=== PATIENT | female | born 1990 | race African-American/Black ===

== ENCOUNTER 2022-04-29 05:57 | Inpatient (IN) ==
[2022-04-23 13:00] LABS: Basophils % 0.2 % (0.0-0.8); Eosinophils # 0.1 10*3/uL (0.0-0.87); Eosinophils % 0.7 % (0.00-10.9); Hematocrit 28.5 VOL% (35.7-47.0); Hemoglobin 8.8 GM/DL (12.0-16.0); Immature Granulocytes % 0.5 %; Immature Granulocytes Absolute 0.05 #; Lymphocytes # 1.5 10*3/uL (1.4-4.0); Lymphocytes % 14.6 % (21.3-54.2); Mean Corpuscular HGB Conc 30.9 GM/DL (32-36); Mean Corpuscular Volume 84.8 FL (87-102); Mean Platelet Volume 8.9 FL (9.6-12.0); Monocytes # 0.7 10*3/uL (0.11-0.8); Monocytes % 7.1 % (1.7-12.7); Neutrophils % 76.9 % (38.7-73.9); Platelet Count 484 T/CUMM (130-400); Red Blood Count 3.36 MC/CUMM (3.8-5.5); Red Cell Distribution Width 15.5 % (9.3-17.3)
[2022-04-23 13:17] LABS: Calcium 8.1 MG/DL (8.5-10.1); Osmolality,Calculated 268.8 MOS/KG (273-304); Potassium 4.1 MMOL/L (3.5-5.1)
[2022-04-23 13:26] LABS: Thyroid Stimulating Hormone 1.1 uIU/ml (0.358-3.74)
[2022-04-29] MEDS ORDERED: propofoL 200 MG/20 ML VIAL IV ONE ×2 (06:22→08:59)
[2022-04-29] MEDS ORDERED: ROCURONIUM 50 MG/5 ML VIAL IV ONE ×2 (06:22→10:25)
[2022-04-29] MEDS ORDERED: LIDOCAINE 2% 5 ML VIAL ONE (06:22)
[2022-04-29] MEDS ORDERED: MIDAZOLAM 2 MG/2 ML VIAL ONE (06:23)
[2022-04-29] MEDS ORDERED: fentaNYL 100 MCG/2 ML VIAL ONE ×2 (06:23→10:00)
[2022-04-29] MEDS ORDERED: SUCCINYLCHOLINE 200 MG/10 ML VIAL ONE (06:27)
[2022-04-29] MEDS ORDERED: ERTAPENEM 1,000 MG in SODIUM CHLORIDE 0.9% 100 ML IV ONE (06:30)
[2022-04-29] MEDS ORDERED: LACTATED RINGERS 1,000 ML IV SCH (06:30)
[2022-04-29] MEDS ORDERED: EPINEPHrine 1 MG/ML VIAL ONE ×4 (06:54→11:13)
[2022-04-29] MEDS ORDERED: BUPIVACAINE MPF 0.25% 10 ML VIAL ONE (06:56)
[2022-04-29] MEDS ORDERED: LIDOCAINE 1%/EPI INJ 20 ML VIAL ONE (06:56)
[2022-04-29] MEDS ORDERED: LIDOCAINE 1% 5 ML VIAL ONE (06:56)
[2022-04-29] MEDS ORDERED: ESMOLOL 100 MG/10 ML VIAL IV ONE (06:57)
[2022-04-29] MEDS ORDERED: THROMBIN TOPICAL (RECOMBINANT) 5,000 UNIT VIAL TOP ONE (06:58)
[2022-04-29] MEDS ORDERED: FAMOTIDINE 20 MG/2 ML VIAL IV ONE (06:58)
[2022-04-29] MEDS ORDERED: PHENYLEPHRINE DRIP 20 MG/250 ML PREMIX IV ONE (06:58)
[2022-04-29] MEDS ORDERED: SEVOFLURANE 1 UNIT/15 MINUTE INH ONE ×13 (08:09→11:22)
[2022-04-29] MEDS ORDERED: DEXAMETHASONE 4 MG/1 ML VIAL ONE (08:09)
[2022-04-29] MEDS ORDERED: ONDANSETRON 4 MG/2 ML VIAL ONE ×3 (08:09→12:55)
[2022-04-29 08:18] LABS: Bacteria,Urine Occasional /HPF (Few); Bilirubin,Urine Negative (Negative); Blood, Urine Trace mg/dL (Negative); Glucose,Urine (UA) Negative (Negative); Ketones,Urine Negative (Negative); Nitrite,Urine Negative (Negative); Protein,Urine Negative (Negative); RBC,Urine <1 /HPF (0-4); Squamous Epithelial Cell,Urine Occasional /HPF (0-10); Urine Appearance Clear (Clear); Urine Color Yellow (Yellow); Urine pH 6.5 (4.5-8.0)
[2022-04-29 08:19] LABS: Urine Urobilinogen 0.2 eU/dL (<2.0)
[2022-04-29] MEDS ORDERED: TISSUE ADHESIVE 1 EACH APPLICATOR TOP ONE (09:01)
[2022-04-29] MEDS ORDERED: PHENYLEPHRINE 1 MG/10 ML SYRINGE IV ONE (09:11)
[2022-04-29] MEDS ORDERED: SPRAY APPLICATOR KIT 1 EACH MISC ONE (09:59)
[2022-04-29] MEDS ORDERED: SODIUM CHLORIDE 0.9% 1,000 ML IV PRN (10:04)
[2022-04-29] MEDS ORDERED: PHENYLEPHRINE 10 MG/1 ML VIAL IV ONE (11:07)
[2022-04-29] MEDS ORDERED: SUGAMMADEX 200 MG/2 ML VIAL IV ONE (11:56)
[2022-04-29] MEDS ORDERED: NALOXONE 0.4 MG/ML VIAL IV PRN (12:38)
[2022-04-29] MEDS ORDERED: ONDANSETRON 4 MG/2 ML VIAL IV PRN ×2 (12:38→13:00)
[2022-04-29] MEDS ORDERED: MEPERIDINE 25 MG/1 ML VIAL ONE ×2 (12:55→13:04)
[2022-04-29] MEDS ORDERED: diphenhydrAMINE 50 MG/1 ML VIAL IV PRN (13:00)
[2022-04-29] MEDS ORDERED: HYDROmorphone 1 MG/1 ML SYRINGE IV PRN (13:00)
[2022-04-29] MEDS: MEPERIDINE 25 MG/1 ML VIAL IV PRN ×2 (13:00→13:10)
[2022-04-29] MEDS ORDERED: PROMETHAZINE INJ 25 MG in SODIUM CHLORIDE 0.9% 50 ML IV PRN (13:00)
[2022-04-29] MEDS ORDERED: PROMETHAZINE 25 MG/1 ML VIAL ONE (13:04)
[2022-04-29] MEDS ORDERED: HYDROmorphone PCA 30 MG/30 ML SYRINGE IV ONE (13:25)
[2022-04-29] MEDS: HYDROmorphone PCA 30 MG/30 ML SYRINGE IV SCH (13:39)
[2022-04-29 13:41] LABS: Hematocrit 30.9 VOL% (35.7-47.0); Hemoglobin 9.5 GM/DL (12.0-16.0)
[2022-04-29] MEDS: LACTATED RINGERS 1,000 ML IV SCH ×2 (13:44→21:50)
[2022-04-29] MEDS: METOPROLOL TARTRATE 25 MG TABLET PO SCH (21:50)
[2022-04-30] MEDS: LACTATED RINGERS 1,000 ML IV SCH ×3 (04:54→20:17)
[2022-04-30 05:28] LABS: Basophils # 0.1 10*3/uL (0.0-0.2); Basophils % 0.2 % (0.0-0.8); Hematocrit 27.8 VOL% (35.7-47.0); Hemoglobin 8.4 GM/DL (12.0-16.0); Immature Granulocytes % 5.9 %; Lymphocytes # 1.7 10*3/uL (1.4-4.0); Lymphocytes % 7.2 % (21.3-54.2); Mean Corpuscular HGB Conc 30.2 GM/DL (32-36); Mean Corpuscular Volume 89.1 FL (87-102); Mean Platelet Volume 8.6 FL (9.6-12.0); Monocytes % 4.4 % (1.7-12.7); Neutrophils % 82.3 % (38.7-73.9); Platelet Count 400 T/CUMM (130-400); Red Blood Count 3.12 MC/CUMM (3.8-5.5); Red Cell Distribution Width 15.2 % (9.3-17.3); White Blood Count 23.6 T/CUMM (4-12)
[2022-04-30 05:52] LABS: Hypochromia Slight; Lymphocytes 3 % (20-55); Platelet Estimate Adequate; Total Cells Counted 100
[2022-04-30 05:53] LABS: Microcytosis Slight
[2022-04-30 05:56] LABS: Calcium 7.9 MG/DL (8.5-10.1); Osmolality,Calculated 270.7 MOS/KG (273-304)
[2022-04-30] MEDS: ENOXAPARIN 30 MG/0.3 ML SYRINGE SUBCUT SCH (08:51)
[2022-04-30] MEDS: METOPROLOL TARTRATE 25 MG TABLET PO SCH ×3 (08:51→20:16)
[2022-04-30] MEDS: PANTOPRAZOLE 40 MG VIAL IV SCH (08:52)
[2022-05-01] MEDS: LACTATED RINGERS 1,000 ML IV SCH ×3 (04:19→20:53)
[2022-05-01] MEDS: PANTOPRAZOLE 40 MG VIAL IV SCH (09:37)
[2022-05-01] MEDS: ENOXAPARIN 30 MG/0.3 ML SYRINGE SUBCUT SCH (09:38)
[2022-05-01] MEDS: METOPROLOL TARTRATE 25 MG TABLET PO SCH ×2 (09:38→20:40)
[2022-05-01] MEDS: ACETAMINOPHEN 325 MG TABLET PO PRN (20:40)
[2022-05-01] MEDS: HYDROmorphone PCA 30 MG/30 ML SYRINGE IV SCH (20:52)
[2022-05-02] MEDS: LACTATED RINGERS 1,000 ML IV SCH ×3 (04:04→20:37)
[2022-05-02] MEDS: METOPROLOL TARTRATE 25 MG TABLET PO SCH ×2 (09:49→20:31)
[2022-05-02] MEDS: PANTOPRAZOLE 40 MG VIAL IV SCH (09:50)
[2022-05-02] MEDS: ENOXAPARIN 30 MG/0.3 ML SYRINGE SUBCUT SCH (09:50)
[2022-05-02] MEDS: diphenhydrAMINE CAP 25 MG CAPSULE PO PRN (20:31)
[2022-05-02] MEDS: HYDROmorphone PCA 30 MG/30 ML SYRINGE IV SCH (20:36)
[2022-05-03] MEDS: LACTATED RINGERS 1,000 ML IV SCH ×3 (04:39→21:35)
[2022-05-03] MEDS: METOPROLOL TARTRATE 25 MG TABLET PO SCH ×2 (08:45→21:20)
[2022-05-03] MEDS: ENOXAPARIN 30 MG/0.3 ML SYRINGE SUBCUT SCH (08:46)
[2022-05-03] MEDS: PANTOPRAZOLE 40 MG VIAL IV SCH (08:46)
[2022-05-03] MEDS: HYDROmorphone PCA 30 MG/30 ML SYRINGE IV SCH (19:08)
[2022-05-04] MEDS: LACTATED RINGERS 1,000 ML IV SCH ×4 (06:41→22:30)
[2022-05-04] MEDS ORDERED: fentaNYL 100 MCG/2 ML VIAL ONE (08:44)
[2022-05-04] MEDS ORDERED: PHENYLEPHRINE 1 MG/10 ML SYRINGE IV ONE (08:44)
[2022-05-04] MEDS ORDERED: MIDAZOLAM 2 MG/2 ML VIAL ONE ×2 (08:44→09:44)
[2022-05-04] MEDS ORDERED: propofoL 200 MG/20 ML VIAL IV ONE ×3 (08:44→10:00)
[2022-05-04] MEDS ORDERED: SEVOFLURANE 1 UNIT/15 MINUTE INH ONE (08:44)
[2022-05-04] MEDS ORDERED: LIDOCAINE 2% 5 ML VIAL ONE (08:44)
[2022-05-04] MEDS ORDERED: ONDANSETRON 4 MG/2 ML VIAL ONE (08:45)
[2022-05-04] MEDS ORDERED: BACITRACIN OINT 0.9 GM PACK TOP ONE ×2 (08:48→09:42)
[2022-05-04] MEDS ORDERED: KETAMINE 500 MG/10 ML VIAL ONE (09:18)
[2022-05-04] MEDS ORDERED: GLYCOPYRROLATE 0.4 MG/2 ML VIAL ONE (09:18)
[2022-05-04] MEDS ORDERED: HYDROmorphone 1 MG/1 ML SYRINGE IV PRN (10:34)
[2022-05-04] MEDS ORDERED: diphenhydrAMINE 50 MG/1 ML VIAL IV PRN (10:34)
[2022-05-04] MEDS ORDERED: MEPERIDINE 25 MG/1 ML VIAL IV PRN (10:34)
[2022-05-04] MEDS ORDERED: PROMETHAZINE INJ 25 MG in SODIUM CHLORIDE 0.9% 50 ML IV PRN (10:34)
[2022-05-04] MEDS ORDERED: ONDANSETRON 4 MG/2 ML VIAL IV PRN (10:34)
[2022-05-04] MEDS ORDERED: MEPERIDINE 25 MG/1 ML VIAL ONE (10:39)
[2022-05-04] MEDS ORDERED: PROMETHAZINE 25 MG/1 ML VIAL ONE (10:39)
[2022-05-04] MEDS: ENOXAPARIN 30 MG/0.3 ML SYRINGE SUBCUT SCH (11:31)
[2022-05-04] MEDS: METOPROLOL TARTRATE 25 MG TABLET PO SCH ×2 (11:54→22:30)
[2022-05-04] MEDS: PANTOPRAZOLE 40 MG VIAL IV SCH (11:54)
[2022-05-04] MEDS: HYDROmorphone PCA 30 MG/30 ML SYRINGE IV SCH (18:38)
[2022-05-04] MEDS: PIPERACILLIN/TAZOBACTAM 3,375 MG in SODIUM CHLORIDE 0.9% 100 ML IV SCH (18:44)
[2022-05-05] MEDS: PIPERACILLIN/TAZOBACTAM 3,375 MG in SODIUM CHLORIDE 0.9% 100 ML IV SCH ×3 (02:24→17:09)
[2022-05-05] MEDS: PANTOPRAZOLE 40 MG VIAL IV SCH (09:08)
[2022-05-05] MEDS: METOPROLOL TARTRATE 25 MG TABLET PO SCH ×2 (09:08→20:57)
[2022-05-05] MEDS: ENOXAPARIN 30 MG/0.3 ML SYRINGE SUBCUT SCH (09:08)
[2022-05-05] MEDS: LACTATED RINGERS 1,000 ML IV SCH (14:35)
[2022-05-05] MEDS: HYDROmorphone PCA 30 MG/30 ML SYRINGE IV SCH (14:35)
[2022-05-05] MEDS: ACETAMINOPHEN 325 MG TABLET PO PRN (17:09)
[2022-05-05] MEDS ORDERED: BACITRACIN OINT 28.35 GM TUBE TOP ONE (17:30)
[2022-05-05] MEDS: VANCOMYCIN INJ 1,000 MG in SODIUM CHLORIDE 0.9% 250 ML IV SCH (21:14)
[2022-05-06] MEDS: PIPERACILLIN/TAZOBACTAM 3,375 MG in SODIUM CHLORIDE 0.9% 100 ML IV SCH ×3 (01:30→17:12)
[2022-05-06] MEDS: LACTATED RINGERS 1,000 ML IV SCH ×3 (04:30→16:02)
[2022-05-06] MEDS: VANCOMYCIN INJ 1,000 MG in SODIUM CHLORIDE 0.9% 250 ML IV SCH ×2 (09:34→21:21)
[2022-05-06] MEDS: ENOXAPARIN 30 MG/0.3 ML SYRINGE SUBCUT SCH (09:34)
[2022-05-06] MEDS: METOPROLOL TARTRATE 25 MG TABLET PO SCH ×2 (09:34→21:21)
[2022-05-06] MEDS: PANTOPRAZOLE 40 MG VIAL IV SCH (09:35)
[2022-05-06] MEDS: SERTRALINE 25 MG TABLET PO SCH (16:02)
[2022-05-06] MEDS: HYDROmorphone PCA 30 MG/30 ML SYRINGE IV SCH (18:22)
[2022-05-07] MEDS: LACTATED RINGERS 1,000 ML IV SCH (01:11)
[2022-05-07] MEDS: PIPERACILLIN/TAZOBACTAM 3,375 MG in SODIUM CHLORIDE 0.9% 100 ML IV SCH ×3 (02:49→17:44)
[2022-05-07 05:49] LABS: Calcium 7.8 MG/DL (8.5-10.1); Osmolality,Calculated 270.7 MOS/KG (273-304); Potassium 3.6 MMOL/L (3.5-5.1)
[2022-05-07] MEDS: SERTRALINE 25 MG TABLET PO SCH (09:20)
[2022-05-07] MEDS: METOPROLOL TARTRATE 25 MG TABLET PO SCH ×2 (09:20→21:48)
[2022-05-07] MEDS: PANTOPRAZOLE 40 MG VIAL IV SCH (09:20)
[2022-05-07] MEDS: ENOXAPARIN 40 MG/0.4 ML SYRINGE SUBCUT SCH (09:20)
[2022-05-07] MEDS: POLYETHYLENE GLYCOL POWDER 17 GM PACK PO SCH (09:24)
[2022-05-07] MEDS: VANCOMYCIN INJ 1,000 MG in SODIUM CHLORIDE 0.9% 250 ML IV SCH ×2 (14:26→21:47)
[2022-05-07] MEDS: BACITRACIN OINT 28.35 GM TUBE TOP SCH (18:00)
[2022-05-08] MEDS: PIPERACILLIN/TAZOBACTAM 3,375 MG in SODIUM CHLORIDE 0.9% 100 ML IV SCH ×3 (02:58→18:06)
[2022-05-08] MEDS: PANTOPRAZOLE 40 MG VIAL IV SCH (08:22)
[2022-05-08] MEDS: ENOXAPARIN 40 MG/0.4 ML SYRINGE SUBCUT SCH (08:22)
[2022-05-08] MEDS: POLYETHYLENE GLYCOL POWDER 17 GM PACK PO SCH (08:22)
[2022-05-08] MEDS: METOPROLOL TARTRATE 25 MG TABLET PO SCH ×2 (08:22→20:46)
[2022-05-08] MEDS: SERTRALINE 25 MG TABLET PO SCH (08:22)
[2022-05-08 08:55] LABS: Basophils % 0.2 % (0.0-0.8); Eosinophils % 0.3 % (0.00-10.9); Hematocrit 26.4 VOL% (35.7-47.0); Hemoglobin 8.3 GM/DL (12.0-16.0); Immature Granulocytes % 1.2 %; Immature Granulocytes Absolute 0.14 #; Lymphocytes # 0.8 10*3/uL (1.4-4.0); Lymphocytes % 6.7 % (21.3-54.2); Mean Corpuscular HGB Conc 31.4 GM/DL (32-36); Mean Corpuscular Volume 85.4 FL (87-102); Mean Platelet Volume 8.5 FL (9.6-12.0); Monocytes # 0.7 10*3/uL (0.11-0.8); Neutrophils % 85.6 % (38.7-73.9); Platelet Count 430 T/CUMM (130-400); Red Blood Count 3.09 MC/CUMM (3.8-5.5); Red Cell Distribution Width 14.8 % (9.3-17.3)
[2022-05-08 09:15] LABS: Eosinophils 1 % (0-10); Hypochromia Slight; Lymphocytes 8 % (20-55); Microcytosis Slight; Platelet Estimate Adequate; Total Cells Counted 100
[2022-05-08] MEDS: VANCOMYCIN INJ 1,000 MG in SODIUM CHLORIDE 0.9% 250 ML IV SCH ×2 (09:50→22:10)
[2022-05-08] MEDS: BACITRACIN OINT 28.35 GM TUBE TOP SCH (09:51)
[2022-05-09] MEDS: PIPERACILLIN/TAZOBACTAM 3,375 MG in SODIUM CHLORIDE 0.9% 100 ML IV SCH ×3 (02:58→17:47)
[2022-05-09] MEDS: ENOXAPARIN 40 MG/0.4 ML SYRINGE SUBCUT SCH (09:33)
[2022-05-09] MEDS: PANTOPRAZOLE 40 MG VIAL IV SCH (09:33)
[2022-05-09] MEDS: SERTRALINE 25 MG TABLET PO SCH (09:33)
[2022-05-09] MEDS: BACITRACIN OINT 28.35 GM TUBE TOP SCH (09:34)
[2022-05-09] MEDS: POLYETHYLENE GLYCOL POWDER 17 GM PACK PO SCH (09:34)
[2022-05-09] MEDS: VANCOMYCIN INJ 1,000 MG in SODIUM CHLORIDE 0.9% 250 ML IV SCH ×2 (09:34→22:00)
[2022-05-09] MEDS: METOPROLOL TARTRATE 25 MG TABLET PO SCH ×2 (10:04→22:01)
[2022-05-10] MEDS: PIPERACILLIN/TAZOBACTAM 3,375 MG in SODIUM CHLORIDE 0.9% 100 ML IV SCH ×3 (03:17→17:20)
[2022-05-10 08:55] LABS: Calcium 7.3 MG/DL (8.5-10.1); Osmolality,Calculated 285.6 MOS/KG (273-304)
[2022-05-10] MEDS: VANCOMYCIN INJ 1,000 MG in SODIUM CHLORIDE 0.9% 250 ML IV SCH ×2 (09:35→20:46)
[2022-05-10] MEDS: ENOXAPARIN 40 MG/0.4 ML SYRINGE SUBCUT SCH (09:35)
[2022-05-10] MEDS: PANTOPRAZOLE 40 MG VIAL IV SCH (09:35)
[2022-05-10] MEDS: METOPROLOL TARTRATE 25 MG TABLET PO SCH ×2 (09:36→20:46)
[2022-05-10] MEDS: BACITRACIN OINT 28.35 GM TUBE TOP SCH (09:36)
[2022-05-10] MEDS: POLYETHYLENE GLYCOL POWDER 17 GM PACK PO SCH (09:37)
[2022-05-10] MEDS: SERTRALINE 25 MG TABLET PO SCH (09:37)
[2022-05-11] MEDS: PIPERACILLIN/TAZOBACTAM 3,375 MG in SODIUM CHLORIDE 0.9% 100 ML IV SCH ×3 (02:03→17:56)
[2022-05-11] MEDS: VANCOMYCIN INJ 1,000 MG in SODIUM CHLORIDE 0.9% 250 ML IV SCH (10:05)
[2022-05-11] MEDS: PANTOPRAZOLE 40 MG VIAL IV SCH (10:05)
[2022-05-11] MEDS: ENOXAPARIN 40 MG/0.4 ML SYRINGE SUBCUT SCH (10:06)
[2022-05-11] MEDS: METOPROLOL TARTRATE 25 MG TABLET PO SCH ×2 (10:15→21:29)
[2022-05-11] MEDS: POLYETHYLENE GLYCOL POWDER 17 GM PACK PO SCH (10:15)
[2022-05-11] MEDS: SERTRALINE 25 MG TABLET PO SCH (10:16)
[2022-05-11] MEDS: BACITRACIN OINT 28.35 GM TUBE TOP SCH (11:29)
[2022-05-12] MEDS: PIPERACILLIN/TAZOBACTAM 3,375 MG in SODIUM CHLORIDE 0.9% 100 ML IV SCH ×3 (01:48→17:24)
[2022-05-12] MEDS: METOPROLOL TARTRATE 25 MG TABLET PO SCH ×2 (09:28→21:30)
[2022-05-12] MEDS: ENOXAPARIN 40 MG/0.4 ML SYRINGE SUBCUT SCH (09:28)
[2022-05-12] MEDS: POLYETHYLENE GLYCOL POWDER 17 GM PACK PO SCH (09:28)
[2022-05-12] MEDS: SERTRALINE 25 MG TABLET PO SCH (09:29)
[2022-05-12] MEDS: PANTOPRAZOLE 40 MG VIAL IV SCH (09:29)
[2022-05-12] MEDS: BACITRACIN OINT 28.35 GM TUBE TOP SCH (09:29)
[2022-05-13] MEDS: PIPERACILLIN/TAZOBACTAM 3,375 MG in SODIUM CHLORIDE 0.9% 100 ML IV SCH ×3 (01:42→17:55)
[2022-05-13 05:19] LABS: Calcium 7.4 MG/DL (8.5-10.1); Osmolality,Calculated 280.1 MOS/KG (273-304)
[2022-05-13] MEDS: POLYETHYLENE GLYCOL POWDER 17 GM PACK PO SCH (09:16)
[2022-05-13] MEDS: ENOXAPARIN 40 MG/0.4 ML SYRINGE SUBCUT SCH (09:16)
[2022-05-13] MEDS: BACITRACIN OINT 28.35 GM TUBE TOP SCH (09:18)
[2022-05-13] MEDS: SERTRALINE 25 MG TABLET PO SCH (09:18)
[2022-05-13] MEDS: METOPROLOL TARTRATE 25 MG TABLET PO SCH ×3 (09:18→21:03)
[2022-05-13] MEDS: PANTOPRAZOLE 40 MG VIAL IV SCH (09:20)
[2022-05-14] MEDS: PIPERACILLIN/TAZOBACTAM 3,375 MG in SODIUM CHLORIDE 0.9% 100 ML IV SCH ×3 (01:25→17:02)
[2022-05-14 06:28] LABS: Basophils % 0.1 % (0.0-0.8); Eosinophils % 0.5 % (0.00-10.9); Hemoglobin 6.8 GM/DL (12.0-16.0); Immature Granulocytes % 0.7 %; Immature Granulocytes Absolute 0.06 #; Lymphocytes # 1.1 10*3/uL (1.4-4.0); Lymphocytes % 13.1 % (21.3-54.2); Mean Corpuscular HGB Conc 30.9 GM/DL (32-36); Mean Corpuscular Volume 85.9 FL (87-102); Monocytes # 0.8 10*3/uL (0.11-0.8); Monocytes % 9.1 % (1.7-12.7); Neutrophils % 76.5 % (38.7-73.9); Platelet Count 322 T/CUMM (130-400); Red Blood Count 2.56 MC/CUMM (3.8-5.5); White Blood Count 8.3 T/CUMM (4-12)
[2022-05-14 06:45] LABS: Calcium 7.7 MG/DL (8.5-10.1); Osmolality,Calculated 281.1 MOS/KG (273-304); Potassium 3.2 MMOL/L (3.5-5.1)
[2022-05-14] MEDS: POTASSIUM CHLORIDE 20 MEQ TABLET PO PRN ×2 (08:51→10:54)
[2022-05-14] MEDS: PANTOPRAZOLE 40 MG VIAL IV SCH (08:52)
[2022-05-14] MEDS: ENOXAPARIN 40 MG/0.4 ML SYRINGE SUBCUT SCH (10:22)
[2022-05-14] MEDS: METOPROLOL TARTRATE 25 MG TABLET PO SCH ×2 (10:22→21:18)
[2022-05-14] MEDS: SERTRALINE 25 MG TABLET PO SCH (10:23)
[2022-05-14] MEDS: POLYETHYLENE GLYCOL POWDER 17 GM PACK PO SCH (10:23)
[2022-05-14] MEDS: BACITRACIN OINT 28.35 GM TUBE TOP SCH (10:56)
[2022-05-14] MEDS ORDERED: SODIUM CHLORIDE 0.9% 1,000 ML IV PRN (11:09)
[2022-05-14] MEDS: methylPREDNISolone SOD SUC 40 MG/1 ML VIAL IV SCH (17:02)
[2022-05-15] MEDS: diphenhydrAMINE CAP 25 MG CAPSULE PO PRN ×2 (00:25→20:32)
[2022-05-15] MEDS: PIPERACILLIN/TAZOBACTAM 3,375 MG in SODIUM CHLORIDE 0.9% 100 ML IV SCH ×3 (01:45→18:16)
[2022-05-15 06:42] LABS: Alanine Aminotransferase 17 U/L (13-56); Alkaline Phosphatase 138 U/L (45-117); Aspartate Amino Transferase 18 U/L (0-37); Bilirubin,Total < 0.39 MG/DL (0.20-1.00); Blood Urea Nitrogen 10 MG/DL (7-18); Carbon Dioxide 30 MMOL/L (21-32); Chloride 110 MMOL/L (98-107); Glucose 106 MG/DL (74-106); Osmolality,Calculated 279.3 MOS/KG (273-304); Potassium 4.1 MMOL/L (3.5-5.1); Sodium 141 MMOL/L (136-145)
[2022-05-15] MEDS: ENOXAPARIN 40 MG/0.4 ML SYRINGE SUBCUT SCH (08:48)
[2022-05-15] MEDS: METOPROLOL TARTRATE 25 MG TABLET PO SCH ×2 (08:48→20:43)
[2022-05-15] MEDS: methylPREDNISolone SOD SUC 40 MG/1 ML VIAL IV SCH (08:49)
[2022-05-15] MEDS: PANTOPRAZOLE 40 MG VIAL IV SCH (08:50)
[2022-05-15] MEDS: POLYETHYLENE GLYCOL POWDER 17 GM PACK PO SCH (08:50)
[2022-05-15] MEDS: BACITRACIN OINT 28.35 GM TUBE TOP SCH (09:47)
[2022-05-15] MEDS: SERTRALINE 25 MG TABLET PO SCH (11:05)
[2022-05-15] MEDS: SKIN HEALING OINT (AQUAPHOR) 50 GM TUBE TOP SCH (15:03)
[2022-05-16] MEDS: PIPERACILLIN/TAZOBACTAM 3,375 MG in SODIUM CHLORIDE 0.9% 100 ML IV SCH ×3 (01:54→18:19)
[2022-05-16 05:43] LABS: Basophils % 0.1 % (0.0-0.8); Eosinophils % 0.4 % (0.00-10.9); Hematocrit 27.5 VOL% (35.7-47.0); Hemoglobin 8.3 GM/DL (12.0-16.0); Immature Granulocytes % 0.6 %; Immature Granulocytes Absolute 0.04 #; Lymphocytes # 1.6 10*3/uL (1.4-4.0); Lymphocytes % 22.2 % (21.3-54.2); Mean Corpuscular HGB Conc 30.2 GM/DL (32-36); Mean Corpuscular Volume 85.7 FL (87-102); Mean Platelet Volume 9.1 FL (9.6-12.0); Monocytes # 0.7 10*3/uL (0.11-0.8); Monocytes % 9.1 % (1.7-12.7); Neutrophils % 67.6 % (38.7-73.9); Platelet Count 404 T/CUMM (130-400); Red Blood Count 3.21 MC/CUMM (3.8-5.5); Red Cell Distribution Width 17.4 % (9.3-17.3); White Blood Count 7.1 T/CUMM (4-12)
[2022-05-16] MEDS: methylPREDNISolone SOD SUC 40 MG/1 ML VIAL IV SCH (09:13)
[2022-05-16] MEDS: PANTOPRAZOLE 40 MG VIAL IV SCH (09:14)
[2022-05-16] MEDS: SKIN HEALING OINT (AQUAPHOR) 50 GM TUBE TOP SCH (09:15)
[2022-05-16] MEDS: BACITRACIN OINT 28.35 GM TUBE TOP SCH (09:15)
[2022-05-16] MEDS: ENOXAPARIN 40 MG/0.4 ML SYRINGE SUBCUT SCH (09:15)
[2022-05-16] MEDS: METOPROLOL TARTRATE 25 MG TABLET PO SCH ×2 (10:42→20:53)
[2022-05-16] MEDS: POLYETHYLENE GLYCOL POWDER 17 GM PACK PO SCH (10:42)
[2022-05-16] MEDS: SERTRALINE 25 MG TABLET PO SCH (10:43)
[2022-05-17] MEDS: PIPERACILLIN/TAZOBACTAM 3,375 MG in SODIUM CHLORIDE 0.9% 100 ML IV SCH ×3 (01:27→18:23)
[2022-05-17] MEDS: diphenhydrAMINE CAP 25 MG CAPSULE PO PRN ×2 (02:45→23:14)
[2022-05-17] MEDS: POLYETHYLENE GLYCOL POWDER 17 GM PACK PO SCH (09:06)
[2022-05-17] MEDS: methylPREDNISolone SOD SUC 40 MG/1 ML VIAL IV SCH (09:06)
[2022-05-17] MEDS: PANTOPRAZOLE 40 MG VIAL IV SCH (09:07)
[2022-05-17] MEDS: ENOXAPARIN 40 MG/0.4 ML SYRINGE SUBCUT SCH (09:07)
[2022-05-17] MEDS: BACITRACIN OINT 28.35 GM TUBE TOP SCH (09:08)
[2022-05-17] MEDS: SKIN HEALING OINT (AQUAPHOR) 50 GM TUBE TOP SCH (09:08)
[2022-05-17] MEDS: METOPROLOL TARTRATE 25 MG TABLET PO SCH ×2 (09:52→21:07)
[2022-05-17] MEDS: SERTRALINE 25 MG TABLET PO SCH (09:52)
[2022-05-18] MEDS: PIPERACILLIN/TAZOBACTAM 3,375 MG in SODIUM CHLORIDE 0.9% 100 ML IV SCH ×3 (01:53→17:49)
[2022-05-18] MEDS: POLYETHYLENE GLYCOL POWDER 17 GM PACK PO SCH (09:06)
[2022-05-18] MEDS: METOPROLOL TARTRATE 25 MG TABLET PO SCH ×3 (09:08→21:00)
[2022-05-18] MEDS: PANTOPRAZOLE 40 MG VIAL IV SCH (09:08)
[2022-05-18] MEDS: methylPREDNISolone SOD SUC 40 MG/1 ML VIAL IV SCH (09:08)
[2022-05-18] MEDS: BACITRACIN OINT 28.35 GM TUBE TOP SCH (09:09)
[2022-05-18] MEDS: ENOXAPARIN 40 MG/0.4 ML SYRINGE SUBCUT SCH (09:09)
[2022-05-18] MEDS: SERTRALINE 25 MG TABLET PO SCH (09:23)
[2022-05-18] MEDS: SKIN HEALING OINT (AQUAPHOR) 50 GM TUBE TOP SCH (10:17)
[2022-05-18] MEDS ORDERED: methylPREDNISolone SOD SUC 40 MG/1 ML VIAL IM ONE (15:22)
[2022-05-18] MEDS: diphenhydrAMINE CAP 25 MG CAPSULE PO PRN (21:52)
[2022-05-19] MEDS: PIPERACILLIN/TAZOBACTAM 3,375 MG in SODIUM CHLORIDE 0.9% 100 ML IV SCH ×3 (01:10→18:26)
[2022-05-19] MEDS: ENOXAPARIN 40 MG/0.4 ML SYRINGE SUBCUT SCH (08:58)
[2022-05-19] MEDS: methylPREDNISolone SOD SUC 40 MG/1 ML VIAL IV SCH (08:58)
[2022-05-19] MEDS: PANTOPRAZOLE 40 MG VIAL IV SCH (08:59)
[2022-05-19] MEDS: METOPROLOL TARTRATE 25 MG TABLET PO SCH ×2 (08:59→21:00)
[2022-05-19] MEDS: SERTRALINE 25 MG TABLET PO SCH (09:54)
[2022-05-19] MEDS: POLYETHYLENE GLYCOL POWDER 17 GM PACK PO SCH (09:54)
[2022-05-19] MEDS: BACITRACIN OINT 28.35 GM TUBE TOP SCH (14:20)
[2022-05-19] MEDS: SKIN HEALING OINT (AQUAPHOR) 50 GM TUBE TOP SCH (14:20)
[2022-05-20] MEDS: PIPERACILLIN/TAZOBACTAM 3,375 MG in SODIUM CHLORIDE 0.9% 100 ML IV SCH ×3 (02:09→17:50)
[2022-05-20] MEDS: ENOXAPARIN 40 MG/0.4 ML SYRINGE SUBCUT SCH (09:55)
[2022-05-20] MEDS: PANTOPRAZOLE 40 MG TABLET PO SCH (09:55)
[2022-05-20] MEDS: methylPREDNISolone SOD SUC 40 MG/1 ML VIAL IV SCH (09:55)
[2022-05-20] MEDS: POLYETHYLENE GLYCOL POWDER 17 GM PACK PO SCH (09:56)
[2022-05-20] MEDS: METOPROLOL TARTRATE 25 MG TABLET PO SCH ×2 (09:57→21:19)
[2022-05-20] MEDS: SERTRALINE 25 MG TABLET PO SCH (10:00)
[2022-05-20] MEDS: BACITRACIN OINT 28.35 GM TUBE TOP SCH (17:51)
[2022-05-20] MEDS: SKIN HEALING OINT (AQUAPHOR) 50 GM TUBE TOP SCH (17:51)
[2022-05-21] MEDS: PIPERACILLIN/TAZOBACTAM 3,375 MG in SODIUM CHLORIDE 0.9% 100 ML IV SCH ×3 (03:33→17:04)
[2022-05-21] MEDS: METOPROLOL TARTRATE 25 MG TABLET PO SCH ×2 (09:59→21:12)
[2022-05-21] MEDS: PANTOPRAZOLE 40 MG TABLET PO SCH (09:59)
[2022-05-21] MEDS: methylPREDNISolone SOD SUC 40 MG/1 ML VIAL IV SCH (10:00)
[2022-05-21] MEDS: ENOXAPARIN 40 MG/0.4 ML SYRINGE SUBCUT SCH (10:00)
[2022-05-21] MEDS: SERTRALINE 25 MG TABLET PO SCH (10:01)
[2022-05-21] MEDS: POLYETHYLENE GLYCOL POWDER 17 GM PACK PO SCH (10:02)
[2022-05-21] MEDS: BACITRACIN OINT 28.35 GM TUBE TOP SCH (10:02)
[2022-05-21] MEDS: SKIN HEALING OINT (AQUAPHOR) 50 GM TUBE TOP SCH (10:02)
[2022-05-21] MEDS ORDERED: guaiFENesin 200 MG/10 ML UDCUP PO PRN (15:48)
[2022-05-22] MEDS: PIPERACILLIN/TAZOBACTAM 3,375 MG in SODIUM CHLORIDE 0.9% 100 ML IV SCH ×2 (01:17→09:33)
[2022-05-22 05:01] LABS: Calcium 8.5 MG/DL (8.5-10.1); Potassium 3.4 MMOL/L (3.5-5.1)
[2022-05-22] MEDS: PANTOPRAZOLE 40 MG TABLET PO SCH (08:55)
[2022-05-22] MEDS: METOPROLOL TARTRATE 25 MG TABLET PO SCH ×2 (08:55→21:01)
[2022-05-22] MEDS: POTASSIUM CHLORIDE 20 MEQ TABLET PO PRN (08:56)
[2022-05-22] MEDS: ENOXAPARIN 40 MG/0.4 ML SYRINGE SUBCUT SCH (08:58)
[2022-05-22] MEDS: BACITRACIN OINT 28.35 GM TUBE TOP SCH (09:01)
[2022-05-22] MEDS: SKIN HEALING OINT (AQUAPHOR) 50 GM TUBE TOP SCH (09:01)
[2022-05-22] MEDS: methylPREDNISolone SOD SUC 40 MG/1 ML VIAL IV SCH (09:01)
[2022-05-22] MEDS: POLYETHYLENE GLYCOL POWDER 17 GM PACK PO SCH (09:02)
[2022-05-22] MEDS: SERTRALINE 25 MG TABLET PO SCH (09:03)
[2022-05-22] MEDS: cefTRIAXone 1,000 MG in SODIUM CHLORIDE 0.9% 100 ML IV SCH (18:00)
[2022-05-22] MEDS: diphenhydrAMINE CAP 25 MG CAPSULE PO PRN (19:38)
[2022-05-23] MEDS: METOPROLOL TARTRATE 25 MG TABLET PO SCH ×2 (08:23→21:12)
[2022-05-23] MEDS: PANTOPRAZOLE 40 MG TABLET PO SCH (08:23)
[2022-05-23] MEDS: ENOXAPARIN 40 MG/0.4 ML SYRINGE SUBCUT SCH (08:23)
[2022-05-23] MEDS: POTASSIUM CHLORIDE 20 MEQ TABLET PO PRN (08:23)
[2022-05-23] MEDS: cefTRIAXone 1,000 MG in SODIUM CHLORIDE 0.9% 100 ML IV SCH (08:27)
[2022-05-23] MEDS: SKIN HEALING OINT (AQUAPHOR) 50 GM TUBE TOP SCH (08:28)
[2022-05-23] MEDS: BACITRACIN OINT 28.35 GM TUBE TOP SCH (08:29)
[2022-05-23] MEDS: POLYETHYLENE GLYCOL POWDER 17 GM PACK PO SCH (08:30)
[2022-05-23] MEDS: SERTRALINE 25 MG TABLET PO SCH (08:30)
[2022-05-23] MEDS ORDERED: methylPREDNISolone SOD SUC 40 MG/1 ML VIAL IV SCH (09:00)
[2022-05-24] MEDS: PANTOPRAZOLE 40 MG TABLET PO SCH (09:54)
[2022-05-24] MEDS: ENOXAPARIN 40 MG/0.4 ML SYRINGE SUBCUT SCH (09:54)
[2022-05-24] MEDS: cefTRIAXone 1,000 MG in SODIUM CHLORIDE 0.9% 100 ML IV SCH (09:54)
[2022-05-24] MEDS: SERTRALINE 25 MG TABLET PO SCH (09:54)
[2022-05-24] MEDS: POLYETHYLENE GLYCOL POWDER 17 GM PACK PO SCH (10:16)
[2022-05-24] MEDS: BACITRACIN OINT 28.35 GM TUBE TOP SCH (10:16)
[2022-05-24] MEDS: METOPROLOL TARTRATE 25 MG TABLET PO SCH (10:16)
[2022-05-24] MEDS: SKIN HEALING OINT (AQUAPHOR) 50 GM TUBE TOP SCH (10:16)
[2022-05-24] MEDS: ACETAMINOPHEN 325 MG TABLET PO PRN (18:01)
[2022-05-24] MEDS ORDERED: IBUPROFEN 600 MG TABLET PO PRN (18:26)
[2022-05-25] MEDS: METOPROLOL TARTRATE 25 MG TABLET PO SCH ×3 (00:50→22:34)
[2022-05-25] MEDS: ENOXAPARIN 40 MG/0.4 ML SYRINGE SUBCUT SCH (09:36)
[2022-05-25] MEDS: PANTOPRAZOLE 40 MG TABLET PO SCH (09:36)
[2022-05-25] MEDS: SERTRALINE 25 MG TABLET PO SCH (09:37)
[2022-05-25] MEDS: cefTRIAXone 1,000 MG in SODIUM CHLORIDE 0.9% 100 ML IV SCH (09:37)
[2022-05-25] MEDS: POLYETHYLENE GLYCOL POWDER 17 GM PACK PO SCH (11:22)
[2022-05-25] MEDS: SKIN HEALING OINT (AQUAPHOR) 50 GM TUBE TOP SCH (11:36)
[2022-05-26] MEDS: METOPROLOL TARTRATE 25 MG TABLET PO SCH ×2 (08:57→21:08)
[2022-05-26] MEDS: PANTOPRAZOLE 40 MG TABLET PO SCH (08:57)
[2022-05-26] MEDS: POLYETHYLENE GLYCOL POWDER 17 GM PACK PO SCH (08:57)
[2022-05-26] MEDS: ENOXAPARIN 40 MG/0.4 ML SYRINGE SUBCUT SCH (08:58)
[2022-05-26] MEDS: cefTRIAXone 1,000 MG in SODIUM CHLORIDE 0.9% 100 ML IV SCH (08:59)
[2022-05-26] MEDS: SERTRALINE 25 MG TABLET PO SCH (09:21)
[2022-05-26] MEDS: BACITRACIN OINT 28.35 GM TUBE TOP SCH ×2 (09:53→12:10)
[2022-05-26] MEDS: SKIN HEALING OINT (AQUAPHOR) 50 GM TUBE TOP SCH (12:10)
[2022-05-27] MEDS: PANTOPRAZOLE 40 MG TABLET PO SCH (09:09)
[2022-05-27] MEDS: ENOXAPARIN 40 MG/0.4 ML SYRINGE SUBCUT SCH (09:09)
[2022-05-27] MEDS: cefTRIAXone 1,000 MG in SODIUM CHLORIDE 0.9% 100 ML IV SCH (09:10)
[2022-05-27] MEDS: POLYETHYLENE GLYCOL POWDER 17 GM PACK PO SCH (09:10)
[2022-05-27] MEDS: BACITRACIN OINT 28.35 GM TUBE TOP SCH (09:10)
[2022-05-27] MEDS: SKIN HEALING OINT (AQUAPHOR) 50 GM TUBE TOP SCH (09:10)
[2022-05-27] MEDS: SERTRALINE 25 MG TABLET PO SCH ×2 (09:10→10:11)
[2022-05-27] MEDS: METOPROLOL TARTRATE 25 MG TABLET PO SCH ×2 (09:11→20:20)
[2022-05-28] MEDS: cefTRIAXone 1,000 MG in SODIUM CHLORIDE 0.9% 100 ML IV SCH (08:28)
[2022-05-28] MEDS: ENOXAPARIN 40 MG/0.4 ML SYRINGE SUBCUT SCH (08:29)
[2022-05-28] MEDS: POLYETHYLENE GLYCOL POWDER 17 GM PACK PO SCH (08:29)
[2022-05-28] MEDS: METOPROLOL TARTRATE 25 MG TABLET PO SCH ×2 (09:33→20:28)
[2022-05-28] MEDS: SKIN HEALING OINT (AQUAPHOR) 50 GM TUBE TOP SCH (09:33)
[2022-05-28] MEDS: BACITRACIN OINT 28.35 GM TUBE TOP SCH (09:33)
[2022-05-28] MEDS: SERTRALINE 25 MG TABLET PO SCH (09:34)
[2022-05-28] MEDS: PANTOPRAZOLE 40 MG TABLET PO SCH (09:46)
[2022-05-29] MEDS: METOPROLOL TARTRATE 25 MG TABLET PO SCH (08:16)
[2022-05-29] MEDS: SERTRALINE 25 MG TABLET PO SCH (08:16)
[2022-05-29] MEDS: PANTOPRAZOLE 40 MG TABLET PO SCH (08:34)
[2022-05-29] MEDS: ENOXAPARIN 40 MG/0.4 ML SYRINGE SUBCUT SCH (08:35)
[2022-05-29] MEDS: BACITRACIN OINT 28.35 GM TUBE TOP SCH (08:35)
[2022-05-29] MEDS: SKIN HEALING OINT (AQUAPHOR) 50 GM TUBE TOP SCH (08:35)
[2022-05-29] MEDS: POLYETHYLENE GLYCOL POWDER 17 GM PACK PO SCH (08:35)
[2022-05-29] MEDS: cefTRIAXone 1,000 MG in SODIUM CHLORIDE 0.9% 100 ML IV SCH (08:35)
[2022-05-29 12:59] VITALS: BP 111/69
== END 2022-05-29 14:54 | disposition home health service (06) | DRG 577 ==
LOC: N.OR 05:57 → N.SDSINP 05:59 → N.3E 14:17
PROVIDERS: ADMIT Student in an Organized Health Care Education/Training Program; ATTEND Student in an Organized Health Care Education/Training Program

== ENCOUNTER 2022-08-24 05:45 | Inpatient (IN) ==
[2022-08-18 12:12] LABS: Basophils % 0.2 % (0.0-0.8); Eosinophils # 0.1 10*3/uL (0.0-0.87); Eosinophils % 2.2 % (0.00-10.9); Hematocrit 32.2 VOL% (35.7-47.0); Hemoglobin 9.8 GM/DL (12.0-16.0); Immature Granulocytes % 0.4 %; Immature Granulocytes Absolute 0.02 #; Lymphocytes # 1.2 10*3/uL (1.4-4.0); Lymphocytes % 21.5 % (21.3-54.2); Mean Corpuscular HGB Conc 30.4 GM/DL (32-36); Mean Platelet Volume 8.7 FL (9.6-12.0); Monocytes # 0.4 10*3/uL (0.11-0.8); Monocytes % 6.6 % (1.7-12.7); Neutrophils % 69.1 % (38.7-73.9); Platelet Count 350 T/CUMM (130-400); Red Blood Count 3.88 MC/CUMM (3.8-5.5); Red Cell Distribution Width 13.5 % (9.3-17.3); White Blood Count 5.4 T/CUMM (4-12)
[2022-08-18 12:39] LABS: Calcium 8.8 MG/DL (8.5-10.1); Osmolality,Calculated 272.7 MOS/KG (273-304); Potassium 3.7 MMOL/L (3.5-5.1)
[2022-08-24] MEDS ORDERED: VANCOMYCIN INJ 1,000 MG in SODIUM CHLORIDE 0.9% 250 ML IV ONE (06:30)
[2022-08-24] MEDS: LACTATED RINGERS 1,000 ML IV SCH (06:40)
[2022-08-24] MEDS ORDERED: fentaNYL 100 MCG/2 ML VIAL ONE ×2 (06:42→08:06)
[2022-08-24] MEDS ORDERED: SEVOFLURANE 1 UNIT/15 MINUTE INH ONE ×9 (06:42→09:32)
[2022-08-24] MEDS ORDERED: DEXAMETHASONE 4 MG/1 ML VIAL ONE (06:42)
[2022-08-24] MEDS ORDERED: ONDANSETRON 4 MG/2 ML VIAL ONE (06:42)
[2022-08-24] MEDS ORDERED: LIDOCAINE 2% 5 ML VIAL ONE (06:42)
[2022-08-24] MEDS ORDERED: propofoL 200 MG/20 ML VIAL IV ONE (06:42)
[2022-08-24] MEDS ORDERED: MIDAZOLAM 2 MG/2 ML VIAL ONE (06:43)
[2022-08-24] MEDS ORDERED: EPINEPHrine 1 MG/ML VIAL ONE (07:44)
[2022-08-24] MEDS ORDERED: NALOXONE 0.4 MG/ML VIAL IV PRN (10:23)
[2022-08-24] MEDS ORDERED: HYDROmorphone 1 MG/1 ML SYRINGE ONE (10:35)
[2022-08-24] MEDS ORDERED: ONDANSETRON 4 MG/2 ML VIAL IV PRN (10:36)
[2022-08-24] MEDS: HYDROmorphone 1 MG/1 ML SYRINGE IV PRN ×2 (10:37→11:13)
[2022-08-24 10:51] LABS: Mucus,Urine Occasional /LPF (Occasional); RBC,Urine 9 /HPF (0-4); Squamous Epithelial Cell,Urine Few /HPF (0-10)
[2022-08-24 10:54] LABS: Bilirubin,Urine Negative (Negative); Blood, Urine Moderate mg/dL (Negative); Glucose,Urine (UA) Negative (Negative); Ketones,Urine Negative (Negative); Nitrite,Urine Negative (Negative); Protein,Urine Negative (Negative); Urine Appearance Clear (Clear); Urine Color Yellow (Yellow); Urine Urobilinogen 0.2 eU/dL (<2.0)
[2022-08-24] MEDS: DEXTROSE 5% LACTATED RINGERS 1,000 ML IV SCH (12:37)
[2022-08-24] MEDS: HYDROmorphone PCA 30 MG/30 ML SYRINGE IV SCH (13:11)
[2022-08-24] MEDS: diphenhydrAMINE CAP 25 MG CAPSULE PO PRN (13:45)
[2022-08-24] MEDS: PIPERACILLIN/TAZOBACTAM 3,375 MG in SODIUM CHLORIDE 0.9% 100 ML IV SCH (16:22)
[2022-08-24] MEDS: VANCOMYCIN INJ 1,000 MG in SODIUM CHLORIDE 0.9% 250 ML IV SCH (21:49)
[2022-08-25] MEDS: PIPERACILLIN/TAZOBACTAM 3,375 MG in SODIUM CHLORIDE 0.9% 100 ML IV SCH ×4 (00:59→23:52)
[2022-08-25 07:23] LABS: Osmolality,Calculated 277.4 MOS/KG (273-304); Potassium 3.4 MMOL/L (3.5-5.1)
[2022-08-25] MEDS: LACTATED RINGERS 1,000 ML IV SCH (07:38)
[2022-08-25 07:46] LABS: Basophils % 0.1 % (0.0-0.8); Eosinophils % 0.3 % (0.00-10.9); Hematocrit 20.7 VOL% (35.7-47.0); Immature Granulocytes % 0.4 %; Immature Granulocytes Absolute 0.04 #; Lymphocytes # 1.7 10*3/uL (1.4-4.0); Lymphocytes % 17.8 % (21.3-54.2); Mean Corpuscular HGB Conc 30.9 GM/DL (32-36); Mean Corpuscular Volume 82.5 FL (87-102); Mean Platelet Volume 8.4 FL (9.6-12.0); Monocytes # 0.5 10*3/uL (0.11-0.8); Monocytes % 5.7 % (1.7-12.7); Neutrophils % 75.7 % (38.7-73.9); Platelet Count 325 T/CUMM (130-400); Red Blood Count 2.51 MC/CUMM (3.8-5.5); White Blood Count 9.5 T/CUMM (4-12)
[2022-08-25 07:52] LABS: Hemoglobin 6.4 GM/DL (12.0-16.0)
[2022-08-25] MEDS ORDERED: PHENOL 1.4% THROAT SPRAY 177 ML BOTTLE PO PRN (07:58)
[2022-08-25 08:24] LABS: Anisocytosis 1+; Band Neutrophils 5 % (0-10); Eosinophils 1 % (0-10); Lymphocytes 20 % (20-55); Platelet Estimate Normal; Total Cells Counted 100
[2022-08-25 08:26] LABS: Hematocrit 21.1 VOL% (35.7-47.0); Hemoglobin 6.6 GM/DL (12.0-16.0)
[2022-08-25] MEDS: PANTOPRAZOLE 40 MG VIAL IV SCH (08:52)
[2022-08-25] MEDS: VANCOMYCIN INJ 1,000 MG in SODIUM CHLORIDE 0.9% 250 ML IV SCH ×2 (08:52→20:47)
[2022-08-25] MEDS ORDERED: SODIUM CHLORIDE 0.9% 1,000 ML IV PRN (09:01)
[2022-08-25] MEDS: DEXTROSE 5% LACTATED RINGERS 1,000 ML IV SCH ×2 (16:49→16:50)
[2022-08-25] MEDS: HYDROmorphone PCA 30 MG/30 ML SYRINGE IV SCH (21:27)
[2022-08-26] MEDS: DEXTROSE 5% LACTATED RINGERS 1,000 ML IV SCH ×3 (03:34→20:15)
[2022-08-26] MEDS: ACETAMINOPHEN 325 MG TABLET PO PRN (04:09)
[2022-08-26 04:41] LABS: Basophils % 0.1 % (0.0-0.8); Eosinophils # 0.1 10*3/uL (0.0-0.87); Eosinophils % 0.6 % (0.00-10.9); Hematocrit 24.7 VOL% (35.7-47.0); Hemoglobin 7.8 GM/DL (12.0-16.0); Immature Granulocytes % 0.5 %; Immature Granulocytes Absolute 0.08 #; Lymphocytes # 1.6 10*3/uL (1.4-4.0); Lymphocytes % 10.8 % (21.3-54.2); Mean Corpuscular HGB Conc 31.6 GM/DL (32-36); Mean Corpuscular Volume 82.9 FL (87-102); Mean Platelet Volume 8.7 FL (9.6-12.0); Monocytes # 0.9 10*3/uL (0.11-0.8); Platelet Count 346 T/CUMM (130-400); Red Blood Count 2.98 MC/CUMM (3.8-5.5); Red Cell Distribution Width 14.3 % (9.3-17.3); White Blood Count 14.7 T/CUMM (4-12)
[2022-08-26 05:02] LABS: Eosinophils 1 % (0-10); Hypochromia Slight; Lymphocytes 11 % (20-55); Microcytosis Slight; Platelet Estimate Adequate; Total Cells Counted 100
[2022-08-26] MEDS: ENOXAPARIN 40 MG/0.4 ML SYRINGE SUBCUT SCH (08:32)
[2022-08-26] MEDS: PANTOPRAZOLE 40 MG VIAL IV SCH (08:32)
[2022-08-26] MEDS: VANCOMYCIN INJ 1,000 MG in SODIUM CHLORIDE 0.9% 250 ML IV SCH ×2 (08:33→20:13)
[2022-08-26] MEDS: PIPERACILLIN/TAZOBACTAM 3,375 MG in SODIUM CHLORIDE 0.9% 100 ML IV SCH ×3 (09:35→23:40)
[2022-08-26] MEDS: LACTATED RINGERS 1,000 ML IV SCH (10:12)
[2022-08-27] MEDS: ACETAMINOPHEN 325 MG TABLET PO PRN (00:18)
[2022-08-27] MEDS: DEXTROSE 5% LACTATED RINGERS 1,000 ML IV SCH ×4 (02:00→17:51)
[2022-08-27] MEDS: HYDROmorphone PCA 30 MG/30 ML SYRINGE IV SCH ×2 (03:13→11:47)
[2022-08-27] MEDS: LACTATED RINGERS 1,000 ML IV SCH (07:28)
[2022-08-27] MEDS: PIPERACILLIN/TAZOBACTAM 3,375 MG in SODIUM CHLORIDE 0.9% 100 ML IV SCH ×2 (09:06→17:50)
[2022-08-27] MEDS: ENOXAPARIN 40 MG/0.4 ML SYRINGE SUBCUT SCH (09:06)
[2022-08-27] MEDS: PANTOPRAZOLE 40 MG VIAL IV SCH (09:07)
[2022-08-27] MEDS: VANCOMYCIN INJ 1,000 MG in SODIUM CHLORIDE 0.9% 250 ML IV SCH ×3 (09:08→17:51)
[2022-08-27] MEDS ORDERED: BACITRACIN OINT 28.35 GM TUBE TOP ONE (12:29)
[2022-08-28] MEDS: PIPERACILLIN/TAZOBACTAM 3,375 MG in SODIUM CHLORIDE 0.9% 100 ML IV SCH ×4 (00:45→23:11)
[2022-08-28] MEDS: VANCOMYCIN INJ 1,000 MG in SODIUM CHLORIDE 0.9% 250 ML IV SCH ×3 (00:45→16:28)
[2022-08-28] MEDS: diphenhydrAMINE CAP 25 MG CAPSULE PO PRN ×3 (07:04→22:15)
[2022-08-28] MEDS: ENOXAPARIN 40 MG/0.4 ML SYRINGE SUBCUT SCH (08:10)
[2022-08-28] MEDS: PANTOPRAZOLE 40 MG VIAL IV SCH (08:11)
[2022-08-28] MEDS: LACTATED RINGERS 1,000 ML IV SCH (08:12)
[2022-08-28] MEDS ORDERED: HYDROmorphone 1 MG/1 ML SYRINGE IV ONE (08:35)
[2022-08-28] MEDS ORDERED: BACITRACIN OINT 28.35 GM TUBE TOP ONE (10:00)
[2022-08-28] MEDS: ACETAMINOPHEN 325 MG TABLET PO PRN (16:27)
[2022-08-28] MEDS: DEXTROSE 5% LACTATED RINGERS 1,000 ML IV SCH ×2 (19:21→21:52)
[2022-08-29] MEDS: VANCOMYCIN INJ 1,000 MG in SODIUM CHLORIDE 0.9% 250 ML IV SCH ×3 (00:54→16:18)
[2022-08-29 06:48] LABS: Basophils % 0.1 % (0.0-0.8); Eosinophils # 0.1 10*3/uL (0.0-0.87); Hematocrit 22.7 VOL% (35.7-47.0); Hemoglobin 7.1 GM/DL (12.0-16.0); Immature Granulocytes % 0.5 %; Immature Granulocytes Absolute 0.06 #; Lymphocytes # 0.9 10*3/uL (1.4-4.0); Lymphocytes % 7.7 % (21.3-54.2); Mean Corpuscular HGB Conc 31.3 GM/DL (32-36); Mean Corpuscular Volume 83.5 FL (87-102); Mean Platelet Volume 8.6 FL (9.6-12.0); Monocytes # 0.9 10*3/uL (0.11-0.8); Monocytes % 7.4 % (1.7-12.7); Neutrophils % 83.3 % (38.7-73.9); Platelet Count 360 T/CUMM (130-400); Red Blood Count 2.72 MC/CUMM (3.8-5.5); Red Cell Distribution Width 14.3 % (9.3-17.3); White Blood Count 11.5 T/CUMM (4-12)
[2022-08-29] MEDS ORDERED: propofoL 200 MG/20 ML VIAL IV ONE (07:25)
[2022-08-29] MEDS ORDERED: MIDAZOLAM 2 MG/2 ML VIAL ONE (07:25)
[2022-08-29] MEDS ORDERED: LIDOCAINE 2% 5 ML VIAL ONE (07:25)
[2022-08-29 07:30] LABS: Band Neutrophils 3 % (0-10); Eosinophils 3 % (0-10); Lymphocytes 6 % (20-55); Total Cells Counted 100
[2022-08-29 07:31] LABS: Hypochromia Slight; Microcytosis Slight
[2022-08-29 07:32] LABS: Calcium 8.3 MG/DL (8.5-10.1); Osmolality,Calculated 271.8 MOS/KG (273-304); Platelet Estimate Normal; Potassium 3.6 MMOL/L (3.5-5.1)
[2022-08-29] MEDS ORDERED: BACITRACIN OINT 0.9 GM PACK TOP ONE ×2 (07:53→08:17)
[2022-08-29] MEDS ORDERED: HYDROmorphone 1 MG/1 ML SYRINGE ONE (07:59)
[2022-08-29] MEDS ORDERED: ONDANSETRON 4 MG/2 ML VIAL ONE (08:13)
[2022-08-29] MEDS: PANTOPRAZOLE 40 MG VIAL IV SCH (09:30)
[2022-08-29] MEDS: PIPERACILLIN/TAZOBACTAM 3,375 MG in SODIUM CHLORIDE 0.9% 100 ML IV SCH ×2 (09:38→16:18)
[2022-08-29] MEDS: LACTATED RINGERS 1,000 ML IV SCH (10:08)
[2022-08-29] MEDS: HYDROmorphone PCA 30 MG/30 ML SYRINGE IV SCH (10:08)
[2022-08-29] MEDS: BACITRACIN OINT 28.35 GM TUBE TOP SCH (10:09)
[2022-08-29] MEDS: DEXTROSE 5% LACTATED RINGERS 1,000 ML IV SCH (13:30)
[2022-08-30] MEDS: PIPERACILLIN/TAZOBACTAM 3,375 MG in SODIUM CHLORIDE 0.9% 100 ML IV SCH ×3 (00:13→16:57)
[2022-08-30] MEDS: ACETAMINOPHEN 325 MG TABLET PO PRN (00:15)
[2022-08-30] MEDS: VANCOMYCIN INJ 1,000 MG in SODIUM CHLORIDE 0.9% 250 ML IV SCH ×3 (01:47→16:57)
[2022-08-30] MEDS: DEXTROSE 5% LACTATED RINGERS 1,000 ML IV SCH ×3 (04:04→21:00)
[2022-08-30] MEDS: LACTATED RINGERS 1,000 ML IV SCH (08:00)
[2022-08-30] MEDS: ENOXAPARIN 40 MG/0.4 ML SYRINGE SUBCUT SCH (08:10)
[2022-08-30] MEDS: PANTOPRAZOLE 40 MG VIAL IV SCH (08:16)
[2022-08-30] MEDS: BACITRACIN OINT 28.35 GM TUBE TOP SCH (08:17)
[2022-08-30] MEDS: ONDANSETRON 4 MG/2 ML VIAL IV PRN (12:58)
[2022-08-30] MEDS: HYDROmorphone PCA 30 MG/30 ML SYRINGE IV SCH ×2 (13:00→17:44)
[2022-08-31] MEDS: PIPERACILLIN/TAZOBACTAM 3,375 MG in SODIUM CHLORIDE 0.9% 100 ML IV SCH ×3 (00:18→16:55)
[2022-08-31] MEDS: VANCOMYCIN INJ 1,000 MG in SODIUM CHLORIDE 0.9% 250 ML IV SCH ×3 (00:18→16:56)
[2022-08-31] MEDS: DEXTROSE 5% LACTATED RINGERS 1,000 ML IV SCH ×2 (06:44→23:42)
[2022-08-31] MEDS: LACTATED RINGERS 1,000 ML IV SCH (06:44)
[2022-08-31] MEDS: PANTOPRAZOLE 40 MG VIAL IV SCH (09:10)
[2022-08-31] MEDS: ENOXAPARIN 40 MG/0.4 ML SYRINGE SUBCUT SCH (09:11)
[2022-08-31] MEDS: BACITRACIN OINT 28.35 GM TUBE TOP SCH (09:16)
[2022-08-31] MEDS: HYDROmorphone PCA 30 MG/30 ML SYRINGE IV SCH (10:19)
[2022-09-01] MEDS: PIPERACILLIN/TAZOBACTAM 3,375 MG in SODIUM CHLORIDE 0.9% 100 ML IV SCH ×3 (00:01→16:31)
[2022-09-01] MEDS: DEXTROSE 5% LACTATED RINGERS 1,000 ML IV SCH ×3 (00:01→14:17)
[2022-09-01] MEDS: VANCOMYCIN INJ 1,000 MG in SODIUM CHLORIDE 0.9% 250 ML IV SCH ×3 (00:01→16:32)
[2022-09-01] MEDS: PANTOPRAZOLE 40 MG VIAL IV SCH (08:44)
[2022-09-01] MEDS: ENOXAPARIN 40 MG/0.4 ML SYRINGE SUBCUT SCH (08:45)
[2022-09-01] MEDS: BACITRACIN OINT 28.35 GM TUBE TOP SCH (08:45)
[2022-09-01] MEDS: HYDROmorphone PCA 30 MG/30 ML SYRINGE IV SCH (12:22)
[2022-09-02] MEDS: PIPERACILLIN/TAZOBACTAM 3,375 MG in SODIUM CHLORIDE 0.9% 100 ML IV SCH ×2 (00:24→08:22)
[2022-09-02] MEDS: VANCOMYCIN INJ 1,000 MG in SODIUM CHLORIDE 0.9% 250 ML IV SCH (00:25)
[2022-09-02] MEDS: DEXTROSE 5% LACTATED RINGERS 1,000 ML IV SCH ×3 (00:25→18:18)
[2022-09-02 05:33] LABS: Calcium 7.6 MG/DL (8.5-10.1); Potassium 3.1 MMOL/L (3.5-5.1)
[2022-09-02] MEDS: ENOXAPARIN 40 MG/0.4 ML SYRINGE SUBCUT SCH (08:18)
[2022-09-02] MEDS: PANTOPRAZOLE 40 MG VIAL IV SCH (08:22)
[2022-09-02] MEDS: BACITRACIN OINT 28.35 GM TUBE TOP SCH (08:23)
[2022-09-02] MEDS ORDERED: HYDROmorphone 1 MG/1 ML SYRINGE IV PRN (09:03)
[2022-09-02] MEDS: DOXYCYCLINE HYCLATE 100 MG CAPSULE PO SCH ×2 (11:34→16:29)
[2022-09-02] MEDS: diphenhydrAMINE CAP 25 MG CAPSULE PO PRN (16:29)
[2022-09-03] MEDS: DEXTROSE 5% LACTATED RINGERS 1,000 ML IV SCH (03:21)
[2022-09-03] MEDS: DOXYCYCLINE HYCLATE 100 MG CAPSULE PO SCH ×2 (08:45→17:19)
[2022-09-03] MEDS: ENOXAPARIN 40 MG/0.4 ML SYRINGE SUBCUT SCH (08:45)
[2022-09-03] MEDS: BACITRACIN OINT 28.35 GM TUBE TOP SCH (09:17)
[2022-09-03] MEDS: PANTOPRAZOLE 40 MG VIAL IV SCH (09:53)
[2022-09-03] MEDS ORDERED: POTASSIUM CHLORIDE 20 MEQ TABLET PO ONE (11:00)
[2022-09-03] MEDS ORDERED: POTASSIUM BICARB EFFERVESCENT 20 MEQ TAB.EFF PO ONE (11:30)
[2022-09-03] MEDS: ONDANSETRON 4 MG/2 ML VIAL IV PRN (17:30)
[2022-09-04] MEDS: PANTOPRAZOLE 40 MG VIAL IV SCH (08:34)
[2022-09-04] MEDS: ENOXAPARIN 40 MG/0.4 ML SYRINGE SUBCUT SCH (08:34)
[2022-09-04] MEDS: DOXYCYCLINE HYCLATE 100 MG CAPSULE PO SCH ×2 (08:34→16:38)
[2022-09-04] MEDS: ONDANSETRON 4 MG/2 ML VIAL IV PRN (10:12)
[2022-09-04] MEDS: BACITRACIN OINT 28.35 GM TUBE TOP SCH (10:47)
[2022-09-04] MEDS: DEXTROSE 5% LACTATED RINGERS 1,000 ML IV SCH (10:47)
[2022-09-05] MEDS: ENOXAPARIN 40 MG/0.4 ML SYRINGE SUBCUT SCH (09:00)
[2022-09-05] MEDS: DOXYCYCLINE HYCLATE 100 MG CAPSULE PO SCH ×2 (09:00→16:26)
[2022-09-05] MEDS: PANTOPRAZOLE 40 MG TABLET PO SCH (09:00)
[2022-09-05] MEDS: BACITRACIN OINT 28.35 GM TUBE TOP SCH (09:02)
[2022-09-05] MEDS: diphenhydrAMINE CAP 25 MG CAPSULE PO PRN (16:26)
[2022-09-05] MEDS: DEXTROSE 5% LACTATED RINGERS 1,000 ML IV SCH ×2 (16:49→21:48)
[2022-09-06] MEDS: ENOXAPARIN 40 MG/0.4 ML SYRINGE SUBCUT SCH (09:05)
[2022-09-06] MEDS: PANTOPRAZOLE 40 MG TABLET PO SCH (09:05)
[2022-09-06] MEDS: DOXYCYCLINE HYCLATE 100 MG CAPSULE PO SCH ×2 (09:05→17:20)
[2022-09-06] MEDS: DEXTROSE 5% LACTATED RINGERS 1,000 ML IV SCH ×2 (09:06→23:40)
[2022-09-06] MEDS: BACITRACIN OINT 28.35 GM TUBE TOP SCH (10:50)
[2022-09-07] MEDS: diphenhydrAMINE CAP 25 MG CAPSULE PO PRN ×2 (00:38→17:06)
[2022-09-07] MEDS ORDERED: POTASSIUM CHLORIDE 20 MEQ TABLET PO PRN (07:45)
[2022-09-07] MEDS: PANTOPRAZOLE 40 MG TABLET PO SCH (09:10)
[2022-09-07] MEDS: ENOXAPARIN 40 MG/0.4 ML SYRINGE SUBCUT SCH (09:12)
[2022-09-07] MEDS: DOXYCYCLINE HYCLATE 100 MG CAPSULE PO SCH ×2 (09:12→17:03)
[2022-09-07] MEDS: BACITRACIN OINT 28.35 GM TUBE TOP SCH (09:22)
[2022-09-07] MEDS ORDERED: SKIN HEALING OINT (AQUAPHOR) 50 GM TUBE TOP PRN (10:29)
[2022-09-07] MEDS: DEXTROSE 5% LACTATED RINGERS 1,000 ML IV SCH (19:15)
[2022-09-08] MEDS: ENOXAPARIN 40 MG/0.4 ML SYRINGE SUBCUT SCH (08:31)
[2022-09-08] MEDS: PANTOPRAZOLE 40 MG TABLET PO SCH (08:31)
[2022-09-08] MEDS: DOXYCYCLINE HYCLATE 100 MG CAPSULE PO SCH ×2 (08:31→17:23)
[2022-09-08] MEDS: BACITRACIN OINT 28.35 GM TUBE TOP SCH (08:32)
[2022-09-08] MEDS: ACETAMINOPHEN 325 MG TABLET PO PRN ×2 (08:34→18:19)
[2022-09-09] MEDS: ACETAMINOPHEN 325 MG TABLET PO PRN (09:04)
[2022-09-09] MEDS: DOXYCYCLINE HYCLATE 100 MG CAPSULE PO SCH ×2 (09:04→16:53)
[2022-09-09] MEDS: BACITRACIN OINT 28.35 GM TUBE TOP SCH (09:04)
[2022-09-09] MEDS: PANTOPRAZOLE 40 MG TABLET PO SCH (09:04)
[2022-09-09] MEDS: ENOXAPARIN 40 MG/0.4 ML SYRINGE SUBCUT SCH (09:04)
[2022-09-09] MEDS: ONDANSETRON 4 MG/2 ML VIAL IV PRN (10:19)
[2022-09-09] MEDS: diphenhydrAMINE CAP 25 MG CAPSULE PO PRN (21:29)
[2022-09-10] MEDS: PANTOPRAZOLE 40 MG TABLET PO SCH (09:29)
[2022-09-10] MEDS: ENOXAPARIN 40 MG/0.4 ML SYRINGE SUBCUT SCH (09:29)
[2022-09-10] MEDS: BACITRACIN OINT 28.35 GM TUBE TOP SCH (09:29)
[2022-09-10] MEDS: ACETAMINOPHEN 325 MG TABLET PO PRN (11:30)
[2022-09-10] MEDS: DOXYCYCLINE HYCLATE 100 MG CAPSULE PO SCH ×2 (12:27→16:44)
[2022-09-11] MEDS: DOXYCYCLINE HYCLATE 100 MG CAPSULE PO SCH ×2 (08:55→16:27)
[2022-09-11] MEDS: ACETAMINOPHEN 325 MG TABLET PO PRN (08:56)
[2022-09-11] MEDS: ENOXAPARIN 40 MG/0.4 ML SYRINGE SUBCUT SCH (08:57)
[2022-09-11] MEDS: BACITRACIN OINT 28.35 GM TUBE TOP SCH (08:57)
[2022-09-11] MEDS: PANTOPRAZOLE 40 MG TABLET PO SCH (08:58)
[2022-09-11] MEDS: diphenhydrAMINE CAP 25 MG CAPSULE PO PRN (17:51)
[2022-09-12] MEDS: PANTOPRAZOLE 40 MG TABLET PO SCH (08:48)
[2022-09-12] MEDS: DOXYCYCLINE HYCLATE 100 MG CAPSULE PO SCH (08:48)
[2022-09-12] MEDS: ENOXAPARIN 40 MG/0.4 ML SYRINGE SUBCUT SCH (08:48)
[2022-09-12] MEDS: BACITRACIN OINT 28.35 GM TUBE TOP SCH (08:51)
[2022-09-12 12:51] VITALS: BP 102/56
== END 2022-09-12 12:25 | disposition home health service (06) | DRG 577 ==
LOC: N.OR 05:45 → N.SDSINP 05:46 → N.3E 11:44
PROVIDERS: ADMIT Student in an Organized Health Care Education/Training Program; ATTEND Student in an Organized Health Care Education/Training Program

== ENCOUNTER 2022-10-08 05:50 | Inpatient (IN) ==
[2022-10-08] MEDS ORDERED: VANCOMYCIN INJ 1,000 MG in SODIUM CHLORIDE 0.9% 250 ML IV ONE (06:00)
[2022-10-08] MEDS ORDERED: GABAPENTIN 400 MG CAPSULE PO ONE (07:01)
[2022-10-08] MEDS ORDERED: FAMOTIDINE 20 MG TABLET PO ONE (07:01)
[2022-10-08] MEDS ORDERED: DIAZEPAM 5 MG TABLET PO ONE (07:01)
[2022-10-08] MEDS ORDERED: ACETAMINOPHEN 500 MG TABLET PO ONE (07:01)
[2022-10-08] MEDS ORDERED: DEXAMETHASONE 4 MG/1 ML VIAL ONE ×2 (07:14→07:21)
[2022-10-08] MEDS ORDERED: KETOROLAC 30 MG/1 ML VIAL ONE (07:14)
[2022-10-08] MEDS ORDERED: LIDOCAINE 2% 5 ML VIAL ONE (07:14)
[2022-10-08] MEDS ORDERED: propofoL 200 MG/20 ML VIAL IV ONE (07:14)
[2022-10-08] MEDS ORDERED: ONDANSETRON 4 MG/2 ML VIAL ONE (07:14)
[2022-10-08] MEDS ORDERED: MIDAZOLAM 2 MG/2 ML VIAL ONE (07:15)
[2022-10-08] MEDS ORDERED: fentaNYL 100 MCG/2 ML VIAL ONE (07:15)
[2022-10-08 07:17] LABS: Basophils % 0.2 % (0.0-0.8); Eosinophils # 0.1 10*3/uL (0.0-0.87); Eosinophils % 1.1 % (0.00-10.9); Hematocrit 28.6 VOL% (35.7-47.0); Hemoglobin 8.7 GM/DL (12.0-16.0); Immature Granulocytes % 0.2 %; Immature Granulocytes Absolute 0.01 #; Lymphocytes % 18.2 % (21.3-54.2); Mean Corpuscular HGB Conc 30.4 GM/DL (32-36); Mean Corpuscular Volume 81.3 FL (87-102); Mean Platelet Volume 8.2 FL (9.6-12.0); Monocytes # 0.4 10*3/uL (0.11-0.8); Monocytes % 7.7 % (1.7-12.7); Neutrophils % 72.6 % (38.7-73.9); Platelet Count 427 T/CUMM (130-400); Red Blood Count 3.52 MC/CUMM (3.8-5.5); Red Cell Distribution Width 14.6 % (9.3-17.3); White Blood Count 5.4 T/CUMM (4-12)
[2022-10-08] MEDS ORDERED: SEVOFLURANE 1 UNIT/15 MINUTE INH ONE ×7 (07:21→09:45)
[2022-10-08] MEDS ORDERED: SPRAY APPLICATOR KIT 1 EACH MISC ONE (07:23)
[2022-10-08] MEDS ORDERED: EPINEPHrine 1 MG/ML VIAL ONE (07:23)
[2022-10-08] MEDS ORDERED: THROMBIN TOPICAL (RECOMBINANT) 5,000 UNIT VIAL TOP ONE (07:33)
[2022-10-08 07:36] LABS: Calcium 8.9 MG/DL (8.5-10.1); Osmolality,Calculated 272.7 MOS/KG (273-304); Potassium 3.7 MMOL/L (3.5-5.1)
[2022-10-08] MEDS: LACTATED RINGERS 1,000 ML IV SCH ×2 (07:46→10:35)
[2022-10-08] MEDS ORDERED: ACETAMINOPHEN INJ 1,000 MG/100 ML VIAL IV ONE (08:20)
[2022-10-08] MEDS ORDERED: PHENYLEPHRINE 1 MG/10 ML SYRINGE IV ONE (08:58)
[2022-10-08] MEDS ORDERED: ACETAMINOPHEN 325 MG TABLET PO PRN (09:53)
[2022-10-08] MEDS ORDERED: ONDANSETRON 4 MG/2 ML VIAL IV PRN ×2 (09:53→09:58)
[2022-10-08] MEDS ORDERED: NALOXONE 0.4 MG/ML VIAL IV PRN (09:53)
[2022-10-08] MEDS ORDERED: HYDROmorphone 1 MG/1 ML SYRINGE ONE (09:57)
[2022-10-08] MEDS: HYDROmorphone 1 MG/1 ML SYRINGE IV PRN ×2 (09:59→10:20)
[2022-10-08] MEDS: HYDROmorphone PCA 30 MG/30 ML SYRINGE IV SCH (10:26)
[2022-10-08] MEDS ORDERED: SODIUM CHLORIDE 0.9% 100 ML IV ONE (12:01)
[2022-10-08] MEDS: PIPERACILLIN/TAZOBACTAM 3,375 MG in SODIUM CHLORIDE 0.9% 100 ML IV SCH ×2 (12:05→20:33)
[2022-10-08] MEDS: METOPROLOL TARTRATE 25 MG TABLET PO SCH (20:43)
[2022-10-09] MEDS: PIPERACILLIN/TAZOBACTAM 3,375 MG in SODIUM CHLORIDE 0.9% 100 ML IV SCH ×3 (03:23→20:47)
[2022-10-09 05:56] LABS: Basophils % 0.1 % (0.0-0.8); Eosinophils % 0.2 % (0.00-10.9); Hematocrit 24.8 VOL% (35.7-47.0); Hemoglobin 7.5 GM/DL (12.0-16.0); Immature Granulocytes % 0.5 %; Immature Granulocytes Absolute 0.04 #; Lymphocytes # 1.3 10*3/uL (1.4-4.0); Lymphocytes % 15.1 % (21.3-54.2); Mean Corpuscular HGB Conc 30.2 GM/DL (32-36); Mean Corpuscular Volume 81.6 FL (87-102); Mean Platelet Volume 8.5 FL (9.6-12.0); Monocytes # 0.6 10*3/uL (0.11-0.8); Monocytes % 7.1 % (1.7-12.7); Platelet Count 432 T/CUMM (130-400); Red Blood Count 3.04 MC/CUMM (3.8-5.5); Red Cell Distribution Width 14.5 % (9.3-17.3); White Blood Count 8.5 T/CUMM (4-12)
[2022-10-09 06:15] LABS: Calcium 8.6 MG/DL (8.5-10.1); Osmolality,Calculated 273.7 MOS/KG (273-304); Potassium 3.9 MMOL/L (3.5-5.1)
[2022-10-09] MEDS: METOPROLOL TARTRATE 25 MG TABLET PO SCH ×2 (09:04→20:18)
[2022-10-09] MEDS: HYDROmorphone PCA 30 MG/30 ML SYRINGE IV SCH (11:57)
[2022-10-09] MEDS: diphenhydrAMINE CAP 25 MG CAPSULE PO PRN (12:14)
[2022-10-09] MEDS: ENOXAPARIN 40 MG/0.4 ML SYRINGE SUBCUT SCH (12:14)
[2022-10-10] MEDS: PIPERACILLIN/TAZOBACTAM 3,375 MG in SODIUM CHLORIDE 0.9% 100 ML IV SCH ×3 (04:19→20:37)
[2022-10-10] MEDS: METOPROLOL TARTRATE 25 MG TABLET PO SCH ×2 (09:48→20:38)
[2022-10-10] MEDS: HYDROmorphone PCA 30 MG/30 ML SYRINGE IV SCH (11:21)
[2022-10-10] MEDS: ENOXAPARIN 40 MG/0.4 ML SYRINGE SUBCUT SCH (12:07)
[2022-10-11] MEDS: PIPERACILLIN/TAZOBACTAM 3,375 MG in SODIUM CHLORIDE 0.9% 100 ML IV SCH ×3 (04:40→21:01)
[2022-10-11] MEDS: METOPROLOL TARTRATE 25 MG TABLET PO SCH ×2 (08:28→21:03)
[2022-10-11] MEDS: HYDROmorphone PCA 30 MG/30 ML SYRINGE IV SCH (10:52)
[2022-10-11] MEDS: ENOXAPARIN 40 MG/0.4 ML SYRINGE SUBCUT SCH (12:09)
[2022-10-12] MEDS: PIPERACILLIN/TAZOBACTAM 3,375 MG in SODIUM CHLORIDE 0.9% 100 ML IV SCH ×3 (03:32→21:14)
[2022-10-12] MEDS: METOPROLOL TARTRATE 25 MG TABLET PO SCH ×2 (08:35→21:11)
[2022-10-12] MEDS: HYDROmorphone PCA 30 MG/30 ML SYRINGE IV SCH (08:59)
[2022-10-12] MEDS: ENOXAPARIN 40 MG/0.4 ML SYRINGE SUBCUT SCH (12:52)
[2022-10-13] MEDS: PIPERACILLIN/TAZOBACTAM 3,375 MG in SODIUM CHLORIDE 0.9% 100 ML IV SCH ×3 (04:31→21:32)
[2022-10-13] MEDS ORDERED: propofoL 200 MG/20 ML VIAL IV ONE (07:53)
[2022-10-13] MEDS ORDERED: LIDOCAINE 2% 5 ML VIAL ONE (07:53)
[2022-10-13] MEDS ORDERED: SEVOFLURANE 1 UNIT/15 MINUTE INH ONE (07:53)
[2022-10-13] MEDS ORDERED: ONDANSETRON 4 MG/2 ML VIAL ONE (07:53)
[2022-10-13] MEDS ORDERED: fentaNYL 100 MCG/2 ML VIAL ONE (07:53)
[2022-10-13] MEDS ORDERED: MIDAZOLAM 2 MG/2 ML VIAL ONE (07:59)
[2022-10-13] MEDS ORDERED: BACITRACIN OINT 0.9 GM PACK TOP ONE ×4 (08:02→08:54)
[2022-10-13] MEDS ORDERED: HYDROmorphone 1 MG/1 ML SYRINGE ONE (09:18)
[2022-10-13] MEDS ORDERED: diphenhydrAMINE 50 MG/1 ML VIAL ONE (09:27)
[2022-10-13] MEDS ORDERED: diphenhydrAMINE 50 MG/1 ML VIAL IV PRN (09:29)
[2022-10-13] MEDS ORDERED: ONDANSETRON 4 MG/2 ML VIAL IV PRN (09:29)
[2022-10-13] MEDS ORDERED: HYDROmorphone 1 MG/1 ML SYRINGE IV PRN (09:29)
[2022-10-13] MEDS ORDERED: PROMETHAZINE INJ 12.5 MG in SODIUM CHLORIDE 0.9% 50 ML IV PRN (09:30)
[2022-10-13] MEDS ORDERED: PROMETHAZINE 25 MG/1 ML VIAL ONE (09:45)
[2022-10-13] MEDS: METOPROLOL TARTRATE 25 MG TABLET PO SCH ×2 (10:25→21:32)
[2022-10-13] MEDS: HYDROmorphone PCA 30 MG/30 ML SYRINGE IV SCH (12:14)
[2022-10-13] MEDS: ENOXAPARIN 40 MG/0.4 ML SYRINGE SUBCUT SCH (12:34)
[2022-10-14] MEDS: PIPERACILLIN/TAZOBACTAM 3,375 MG in SODIUM CHLORIDE 0.9% 100 ML IV SCH ×3 (04:04→20:40)
[2022-10-14] MEDS: METOPROLOL TARTRATE 25 MG TABLET PO SCH ×2 (09:13→20:10)
[2022-10-14] MEDS: ENOXAPARIN 40 MG/0.4 ML SYRINGE SUBCUT SCH (13:15)
[2022-10-14] MEDS: BACITRACIN OINT 28.35 GM TUBE TOP SCH (14:06)
[2022-10-14] MEDS ORDERED: PHENOL 1.4% THROAT SPRAY 177 ML BOTTLE PO PRN (14:06)
[2022-10-15] MEDS: PIPERACILLIN/TAZOBACTAM 3,375 MG in SODIUM CHLORIDE 0.9% 100 ML IV SCH ×3 (06:13→19:53)
[2022-10-15] MEDS: METOPROLOL TARTRATE 25 MG TABLET PO SCH ×2 (08:53→21:04)
[2022-10-15] MEDS: BACITRACIN OINT 28.35 GM TUBE TOP SCH (10:14)
[2022-10-15] MEDS: HYDROmorphone PCA 30 MG/30 ML SYRINGE IV SCH (10:14)
[2022-10-15] MEDS: ENOXAPARIN 40 MG/0.4 ML SYRINGE SUBCUT SCH (12:15)
[2022-10-16] MEDS: PIPERACILLIN/TAZOBACTAM 3,375 MG in SODIUM CHLORIDE 0.9% 100 ML IV SCH ×3 (04:25→20:45)
[2022-10-16] MEDS: METOPROLOL TARTRATE 25 MG TABLET PO SCH ×2 (09:29→20:47)
[2022-10-16] MEDS: BACITRACIN OINT 28.35 GM TUBE TOP SCH (11:03)
[2022-10-16] MEDS: HYDROmorphone PCA 30 MG/30 ML SYRINGE IV SCH (11:04)
[2022-10-16] MEDS: ENOXAPARIN 40 MG/0.4 ML SYRINGE SUBCUT SCH (12:00)
[2022-10-17] MEDS: PIPERACILLIN/TAZOBACTAM 3,375 MG in SODIUM CHLORIDE 0.9% 100 ML IV SCH ×3 (03:52→19:50)
[2022-10-17] MEDS: HYDROmorphone PCA 30 MG/30 ML SYRINGE IV SCH ×2 (07:31→10:01)
[2022-10-17] MEDS: METOPROLOL TARTRATE 25 MG TABLET PO SCH ×2 (08:28→20:01)
[2022-10-17] MEDS: BACITRACIN OINT 28.35 GM TUBE TOP SCH (09:15)
[2022-10-17] MEDS: ENOXAPARIN 40 MG/0.4 ML SYRINGE SUBCUT SCH (11:03)
[2022-10-18] MEDS: PIPERACILLIN/TAZOBACTAM 3,375 MG in SODIUM CHLORIDE 0.9% 100 ML IV SCH ×3 (04:04→21:02)
[2022-10-18] MEDS: BACITRACIN OINT 28.35 GM TUBE TOP SCH (09:02)
[2022-10-18] MEDS: METOPROLOL TARTRATE 25 MG TABLET PO SCH ×2 (09:02→21:02)
[2022-10-18] MEDS: HYDROmorphone PCA 30 MG/30 ML SYRINGE IV SCH (09:04)
[2022-10-18] MEDS: ENOXAPARIN 40 MG/0.4 ML SYRINGE SUBCUT SCH (11:23)
[2022-10-18] MEDS: PHENAZOPYRIDINE 95 MG TABLET PO SCH (16:02)
[2022-10-18 16:26] LABS: Bacteria,Urine Occasional /HPF (Few); Mucus,Urine Occasional /LPF (Occasional); RBC,Urine 22 /HPF (0-4); Squamous Epithelial Cell,Urine Occasional /HPF (0-10); Urine Appearance Clear (Clear); Urine Color Yellow (Yellow)
[2022-10-18 16:27] LABS: Bilirubin,Urine Negative (Negative); Blood, Urine Small mg/dL (Negative); Glucose,Urine (UA) Negative (Negative); Ketones,Urine Negative (Negative); Nitrite,Urine Negative (Negative); Protein,Urine Negative (Negative); Urine Urobilinogen 0.2 eU/dL (<2.0)
[2022-10-18] MEDS: diphenhydrAMINE CAP 25 MG CAPSULE PO PRN (18:06)
[2022-10-19] MEDS: PIPERACILLIN/TAZOBACTAM 3,375 MG in SODIUM CHLORIDE 0.9% 100 ML IV SCH ×3 (04:35→21:15)
[2022-10-19] MEDS: METOPROLOL TARTRATE 25 MG TABLET PO SCH ×2 (08:39→21:28)
[2022-10-19] MEDS: PHENAZOPYRIDINE 95 MG TABLET PO SCH ×3 (08:41→16:42)
[2022-10-19] MEDS: BACITRACIN OINT 28.35 GM TUBE TOP SCH (08:41)
[2022-10-19] MEDS: ENOXAPARIN 40 MG/0.4 ML SYRINGE SUBCUT SCH (12:36)
[2022-10-20] MEDS: PIPERACILLIN/TAZOBACTAM 3,375 MG in SODIUM CHLORIDE 0.9% 100 ML IV SCH ×3 (05:15→20:35)
[2022-10-20] MEDS: METOPROLOL TARTRATE 25 MG TABLET PO SCH ×2 (08:25→20:14)
[2022-10-20] MEDS: PHENAZOPYRIDINE 95 MG TABLET PO SCH ×3 (08:27→17:13)
[2022-10-20] MEDS: BACITRACIN OINT 28.35 GM TUBE TOP SCH (08:27)
[2022-10-20] MEDS ORDERED: HYDROmorphone 1 MG/1 ML SYRINGE IV PRN (09:35)
[2022-10-20] MEDS: ENOXAPARIN 40 MG/0.4 ML SYRINGE SUBCUT SCH (12:50)
[2022-10-20] MEDS: HYDROmorphone PCA 30 MG/30 ML SYRINGE IV SCH (18:30)
[2022-10-21] MEDS: PIPERACILLIN/TAZOBACTAM 3,375 MG in SODIUM CHLORIDE 0.9% 100 ML IV SCH ×3 (05:44→20:19)
[2022-10-21] MEDS: METOPROLOL TARTRATE 25 MG TABLET PO SCH ×2 (09:05→20:19)
[2022-10-21] MEDS: PHENAZOPYRIDINE 95 MG TABLET PO SCH ×3 (09:05→17:17)
[2022-10-21] MEDS: BACITRACIN OINT 28.35 GM TUBE TOP SCH (09:06)
[2022-10-21] MEDS: ENOXAPARIN 40 MG/0.4 ML SYRINGE SUBCUT SCH (12:07)
[2022-10-22] MEDS: PIPERACILLIN/TAZOBACTAM 3,375 MG in SODIUM CHLORIDE 0.9% 100 ML IV SCH ×4 (03:33→20:31)
[2022-10-22] MEDS: PHENAZOPYRIDINE 95 MG TABLET PO SCH ×3 (08:55→17:47)
[2022-10-22] MEDS: METOPROLOL TARTRATE 25 MG TABLET PO SCH ×2 (08:56→20:19)
[2022-10-22] MEDS: BACITRACIN OINT 28.35 GM TUBE TOP SCH (08:57)
[2022-10-22] MEDS: ENOXAPARIN 40 MG/0.4 ML SYRINGE SUBCUT SCH (12:13)
[2022-10-23] MEDS: PHENAZOPYRIDINE 95 MG TABLET PO SCH (07:11)
[2022-10-23] MEDS: METOPROLOL TARTRATE 25 MG TABLET PO SCH (08:59)
[2022-10-23] MEDS: BACITRACIN OINT 28.35 GM TUBE TOP SCH (09:52)
[2022-10-23 11:58] VITALS: BP 102/64
== END 2022-10-23 12:50 | disposition home health service (06) | DRG 578 ==
LOC: N.OR 05:50 → N.SDSINP 05:52 → N.3E 14:34
PROVIDERS: ADMIT Student in an Organized Health Care Education/Training Program; ATTEND Student in an Organized Health Care Education/Training Program

== ENCOUNTER 2023-01-11 05:54 | Inpatient (IN) ==
[2023-01-11] MEDS ORDERED: FAMOTIDINE 20 MG TABLET PO ONE (06:44)
[2023-01-11] MEDS ORDERED: DIAZEPAM 5 MG TABLET PO ONE (06:44)
[2023-01-11] MEDS: LACTATED RINGERS 1,000 ML IV SCH (06:55)
[2023-01-11] MEDS ORDERED: ONDANSETRON 4 MG/2 ML VIAL ONE (07:39)
[2023-01-11] MEDS ORDERED: LIDOCAINE 2% 5 ML VIAL ONE (07:39)
[2023-01-11] MEDS ORDERED: fentaNYL 100 MCG/2 ML VIAL ONE ×2 (07:39→09:12)
[2023-01-11] MEDS ORDERED: MIDAZOLAM 2 MG/2 ML VIAL ONE (07:39)
[2023-01-11] MEDS ORDERED: propofoL 200 MG/20 ML VIAL IV ONE (07:39)
[2023-01-11] MEDS ORDERED: EPINEPHrine 1 MG/ML VIAL ONE (08:08)
[2023-01-11] MEDS ORDERED: SEVOFLURANE 1 UNIT/15 MINUTE INH ONE (09:03)
[2023-01-11] MEDS ORDERED: PHENYLEPHRINE 1 MG/10 ML SYRINGE IV ONE (09:03)
[2023-01-11] MEDS ORDERED: ONDANSETRON 4 MG/2 ML VIAL IV PRN ×2 (09:47→10:16)
[2023-01-11] MEDS ORDERED: ACETAMINOPHEN 325 MG TABLET PO PRN (09:47)
[2023-01-11] MEDS ORDERED: NALOXONE 0.4 MG/ML VIAL IV PRN (09:47)
[2023-01-11] MEDS: HYDROmorphone 1 MG/1 ML SYRINGE IV PRN ×2 (10:13→10:23)
[2023-01-11] MEDS ORDERED: HYDROmorphone 1 MG/1 ML SYRINGE ONE (10:13)
[2023-01-11] MEDS: PIPERACILLIN/TAZOBACTAM 3,375 MG in SODIUM CHLORIDE 0.9% 100 ML IV SCH ×2 (11:16→17:39)
[2023-01-11] MEDS: diphenhydrAMINE CAP 25 MG CAPSULE PO PRN (11:53)
[2023-01-11] MEDS: DEXTROSE 5% LACTATED RINGERS 1,000 ML IV SCH (11:54)
[2023-01-11] MEDS: HYDROmorphone PCA 30 MG/30 ML SYRINGE IV SCH (11:56)
[2023-01-12] MEDS: PIPERACILLIN/TAZOBACTAM 3,375 MG in SODIUM CHLORIDE 0.9% 100 ML IV SCH ×3 (03:09→19:16)
[2023-01-12 04:44] LABS: Basophils % 0.3 % (0.0-0.8); Eosinophils # 0.2 10*3/uL (0.0-0.87); Eosinophils % 2.4 % (0.00-10.9); Hematocrit 25.7 VOL% (35.7-47.0); Hemoglobin 7.4 GM/DL (12.0-16.0); Immature Granulocytes % 0.2 %; Immature Granulocytes Absolute 0.01 #; Lymphocytes # 1.4 10*3/uL (1.4-4.0); Lymphocytes % 21.5 % (21.3-54.2); Mean Corpuscular HGB Conc 28.8 GM/DL (32-36); Mean Corpuscular Volume 74.1 FL (87-102); Mean Platelet Volume 8.8 FL (9.6-12.0); Monocytes # 0.5 10*3/uL (0.11-0.8); Monocytes % 8.1 % (1.7-12.7); Neutrophils % 67.5 % (38.7-73.9); Platelet Count 406 T/CUMM (130-400); Red Blood Count 3.47 MC/CUMM (3.8-5.5); Red Cell Distribution Width 16.7 % (9.3-17.3); White Blood Count 6.64 T/CUMM (4-12)
[2023-01-12 05:17] LABS: Calcium 8.3 MG/DL (8.5-10.1); Osmolality,Calculated 270.8 MOS/KG (273-304); Potassium 3.8 MMOL/L (3.5-5.1)
[2023-01-12 05:17] LABS: Hypochromia 1+; Microcytosis 1+; Ovalocytes Slight; Polychromasia Slight
[2023-01-12] MEDS: PANTOPRAZOLE 40 MG VIAL IV SCH (09:16)
[2023-01-12] MEDS: diphenhydrAMINE CAP 25 MG CAPSULE PO PRN (09:17)
[2023-01-12] MEDS: HYDROmorphone PCA 30 MG/30 ML SYRINGE IV SCH (12:19)
[2023-01-12] MEDS: LACTATED RINGERS 1,000 ML IV SCH (19:23)
[2023-01-13] MEDS: DEXTROSE 5% LACTATED RINGERS 1,000 ML IV SCH ×2 (02:35→02:54)
[2023-01-13] MEDS: PIPERACILLIN/TAZOBACTAM 3,375 MG in SODIUM CHLORIDE 0.9% 100 ML IV SCH ×3 (02:50→17:54)
[2023-01-13] MEDS: diphenhydrAMINE CAP 25 MG CAPSULE PO PRN ×2 (09:39→19:50)
[2023-01-13] MEDS: PANTOPRAZOLE 40 MG VIAL IV SCH (09:40)
[2023-01-14] MEDS: PIPERACILLIN/TAZOBACTAM 3,375 MG in SODIUM CHLORIDE 0.9% 100 ML IV SCH ×3 (02:29→17:08)
[2023-01-14] MEDS: PANTOPRAZOLE 40 MG VIAL IV SCH (09:43)
[2023-01-14] MEDS: DEXTROSE 5% LACTATED RINGERS 1,000 ML IV SCH (11:16)
[2023-01-15] MEDS: PIPERACILLIN/TAZOBACTAM 3,375 MG in SODIUM CHLORIDE 0.9% 100 ML IV SCH ×3 (03:03→17:45)
[2023-01-15] MEDS: DEXTROSE 5% LACTATED RINGERS 1,000 ML IV SCH ×2 (03:03→14:00)
[2023-01-15] MEDS: PANTOPRAZOLE 40 MG VIAL IV SCH (09:48)
[2023-01-15] MEDS: BACITRACIN OINT 0.9 GM PACK TOP SCH (12:38)
[2023-01-16] MEDS: PIPERACILLIN/TAZOBACTAM 3,375 MG in SODIUM CHLORIDE 0.9% 100 ML IV SCH ×3 (01:51→17:59)
[2023-01-16] MEDS: DEXTROSE 5% LACTATED RINGERS 1,000 ML IV SCH ×2 (02:37→10:48)
[2023-01-16] MEDS: HYDROmorphone PCA 30 MG/30 ML SYRINGE IV SCH ×3 (07:31→10:48)
[2023-01-16] MEDS: BACITRACIN OINT 0.9 GM PACK TOP SCH (09:34)
[2023-01-16] MEDS: PANTOPRAZOLE 40 MG VIAL IV SCH (09:35)
[2023-01-17] MEDS: PIPERACILLIN/TAZOBACTAM 3,375 MG in SODIUM CHLORIDE 0.9% 100 ML IV SCH ×3 (02:10→17:07)
[2023-01-17] MEDS: DEXTROSE 5% LACTATED RINGERS 1,000 ML IV SCH (06:10)
[2023-01-17] MEDS: BACITRACIN OINT 0.9 GM PACK TOP SCH (09:28)
[2023-01-17] MEDS: PANTOPRAZOLE 40 MG VIAL IV SCH (09:29)
[2023-01-17] MEDS: HYDROmorphone PCA 30 MG/30 ML SYRINGE IV SCH (10:36)
[2023-01-18] MEDS: PIPERACILLIN/TAZOBACTAM 3,375 MG in SODIUM CHLORIDE 0.9% 100 ML IV SCH ×2 (02:50→09:53)
[2023-01-18] MEDS: DEXTROSE 5% LACTATED RINGERS 1,000 ML IV SCH (07:44)
[2023-01-18] MEDS: PANTOPRAZOLE 40 MG VIAL IV SCH (09:52)
[2023-01-18] MEDS: BACITRACIN OINT 0.9 GM PACK TOP SCH (09:52)
[2023-01-18] MEDS: HYDROmorphone PCA 30 MG/30 ML SYRINGE IV SCH (09:53)
[2023-01-18 12:15] VITALS: BP 97/55
== END 2023-01-18 13:25 | disposition home health service (06) | DRG 578 ==
LOC: N.OR 05:54 → N.SDSINP 05:54 → N.2E 09:47
PROVIDERS: ADMIT Student in an Organized Health Care Education/Training Program; ATTEND Student in an Organized Health Care Education/Training Program